=== PATIENT | male | born 1930 ===

== ENCOUNTER 2017-12-30 12:41 | Inpatient (IN) | payer MEDICARE ==
[2017-12-30 12:41] VITALS: BMI 25.8
[2017-12-30] MEDS ORDERED: Tdap Vaccine 0.5 ml Vial (10-64 yrs) IM ONE (14:05)
[2017-12-30 14:22] LABS: BASO # 0.1 K/uL (0.0-0.2); BASO % 0.5 % (0.0-2.0); EOS # 0.3 K/uL (0.0-0.7); EOS % 3.4 % (0.0-4.0); HEMOGLOBIN 14.1 g/dL (12.0-18.0); LYMPH # 1.3 K/uL (1.0-4.3); LYMPH % 13.2 % (20.0-40.0); MEAN CELL VOLUME 86.8 fl (80.0-94.0); MEAN CORPUSCULAR HEMOGLOBIN 28.9 pg (27.0-31.0); MEAN CORPUSCULAR HGB CONC 33.3 g/dL (33.0-37.0); MEAN PLATELET VOLUME 8.1 fl (7.2-11.7); MONO # 0.8 K/uL (0.0-0.8); MONO % 8.4 % (0.0-10.0); NEUT # 7.3 K/uL (1.8-7.0); NEUT % 74.5 % (50.0-75.0); NRBC % 0.2 % (0.0-0.0); RBC 4.88 Mil/uL (4.40-5.90); RED CELL DISTRIBUTION WIDTH 14.1 % (11.5-14.5); WHITE BLOOD COUNT 9.8 K/uL (4.8-10.8)
[2017-12-30 14:28] LABS: INR 0.9 (0.9-1.2); PROTHROMBIN TIME 10.3 Seconds (9.8-13.1)
[2017-12-30 14:30] LABS: BLOOD UREA NITROGEN 13 mg/dl (9-20); CALCIUM 9.2 mg/dL (8.4-10.2); GFR AFRICAN-AMERICAN > 60; GFR NON-AFRICAN AMERICAN > 60
--- NOTE | 2017-12-30 15:06 | CT ---
PROCEDURE: CT HEAD WITHOUT CONTRAST. HISTORY: head injury COMPARISON: None available. TECHNIQUE: Axial computed tomography images were obtained through the head/brain without intravenous contrast. Radiation dose: Total exam DLP = 888 mGy-cm. This CT exam was performed using one or more of the following dose reduction techniques: Automated exposure control, adjustment of the mA and/or kV according to patient size, and/or use of iterative reconstruction technique. FINDINGS: HEMORRHAGE: No intracranial hemorrhage. No extra-axial acute subdural hematoma on subdural windows. Posterior fossa is otherwise unremarkable. BRAIN: No mass effect or edema. Moderate small-vessel changes in the white matter tracts. No cortical effacement. Mild diffuse cerebral cortical atrophy consistent with the patient's age. Cervicomedullary junction is unremarkable as visualized. No tonsillar ectopia is seen. Pituitary gland is normal in size. VENTRICLES: Unremarkable. No hydrocephalus. CALVARIUM: Intact. PARANASAL SINUSES: Chronic moderate left maxillary sinusitis is noted. Mastoid air cells are unremarkable. MASTOID AIR CELLS: Unremarkable as visualized. No inflammatory changes. OTHER FINDINGS: None. IMPRESSION: No evidence of intracranial hemorrhage or recent infarct. Atrophy and moderate small vessel change.
--- NOTE | 2017-12-30 15:10 | CT ---
PROCEDURE: CT Cervical Spine without contrast HISTORY: Trauma, fall COMPARISON: None available. TECHNIQUE: Axial computed tomography images were obtained of the cervical spine without the use of intravenous contrast. Coronal and sagittal reformatted images were created and reviewed. Radiation dose: Total exam DLP = 454 mGy-cm. This CT exam was performed using one or more of the following dose reduction techniques: Automated exposure control, adjustment of the mA and/or kV according to patient size, and/or use of iterative reconstruction technique. FINDINGS: VERTEBRAE: No fracture. Normal alignment. No destructive bony lesion. DISCS/SPINAL CANAL/NEURAL FORAMINA: Multilevel degenerative disc disease with mild disc bulging. Small possible central protrusion at C6-7 and small posterior disc osteophyte complex at C7-T1. Areas of bony neural foraminal narrowing. No jumped facets appreciated. C1-C2 articulation shows no evidence of abnormal widening. PARASPINAL SOFT TISSUES: No prevertebral soft tissue swelling. No paraspinal masses. No jumped facets are identified. OTHER FINDINGS: None. IMPRESSION: No appreciable fracture or malalignment. Degenerative disc disease and spondylosis. Small central disc herniation at C6-7 and small posterior disc osteophyte complex at C7-T1. Mild bulging at C5-6.
--- NOTE | 2017-12-30 15:34 | ED PDOC ---
HPI: Trauma/Fall - HPI Time Seen by Provider: 12/30/17 13:32 Chief Complaint (Nursing): Trauma Chief Complaint (Provider): Fall Type injuries History Per: Patient History/Exam Limitations: no limitations Onset/Duration Of Symptoms: Hrs Location Of Injury: Left: Knee Associated Symptoms: denies: Dizziness, LOC Additional Complaint(s): 87 year old male with a past medical history of hypertension presents to the emergency department post fall. The patient states that he remembers falling but is unsure as to how or why he fell. He reports that he fell hitting his head and face on the floor. Patient further states that he also fell yesterday. Denies chest pain, palpitations, shortness of breath, abdominal pain . - Fall Fall:Prior To Injury: Tripped Past Medical History Reviewed: Historical Data, Nursing Documentation, Vital Signs Vital Signs: Last Vital Signs Temp 98.0 F 01/01/18 12:00 Pulse 96 H 01/01/18 13:21 Resp 18 01/01/18 12:00 BP 114/76 01/01/18 12:00 Pulse Ox 96 01/01/18 12:00 - Medical History PMH: Arthritis, Diabetes (Type II), HTN, Hypercholesterolemia Denies: Chronic Kidney Disease - Surgical History Surgical History: Endoscopy Other surgeries: prostate surgery - Family History Family History: States: Unknown Family Hx - Social History Current smoker - smoking cessation education provided: No Ex-Smoker (has not smoked in the last 12 months): No Alcohol: None Drugs: Denies - Home Medications Home Medications: Ambulatory Orders Medication Instructions Recorded Gabapentin [Neurontin] 300 mg PO BID 12/30/17 Glipizide [Glucotrol] 10 mg PO BID 12/30/17 Montelukast [Singulair] 10 mg PO DAILY 12/30/17 Sitagliptin Phos/Metformin HCl 1 each PO DAILY 12/30/17 [Janumet Xr 100-1,000 mg Tablet] Aspirin [Ecotrin] 81 mg PO DAILY #30 tabec 01/01/18 Atorvastatin [Lipitor] 20 mg PO DAILY #30 tab 01/01/18 Clopidogrel [Plavix] 75 mg PO DAILY #30 tab 01/01/18 Enalapril Maleate [Vasotec] 20 mg PO BID #60 tab 01/01/18 hydroCHLOROthiazide [Hydrodiuril] 12.5 mg PO DAILY #30 tab 01/01/18 - Allergies Allergies/Adverse Reactions: Allergies Allergy/AdvReac Type Severity Reaction Status Date / Time No Known Allergies Allergy Verified 12/30/17 20:36 Review of Systems ROS Statement: Except As Marked, All Systems Reviewed And Found Negative Constitutional: Positive for: Other (Head injury) Cardiovascular: Negative for: Chest Pain, Orthopnea Respiratory: Negative for: Shortness of Breath Musculoskeletal: Positive for: Other (left knee pain) Neurological: Negative for: Headache, Dizziness Physical Exam - Physical Exam Head Exam: Negative for: ATRAUMATIC (Superficial laceration on lower lip mucosal aspect;lower lip laceration on mucosal aspect; mild abrasion of nose.) Skin: Positive for: Normal Color, Warm, Dry. Negative for: Rash Eye Exam: Positive for: Normal appearance, EOMI, PERRL ENT: Positive for: Normal ENT Inspection. Negative for: Nasal Congestion, Tonsillar Exudate Neck: Positive for: Normal, Painless ROM, Supple Cardiovascular/Chest: Positive for: Regular Rate, Rhythm, Chest Non Tender. Negative for: Tachycardia Respiratory: Positive for: Normal Breath Sounds. Negative for: Wheezing, Respiratory Distress Gastrointestinal/Abdominal: Positive for: Normal Exam, Bowel Sounds, Soft. Negative for: Tenderness, Mass, Guarding, Rebound Back: Positive for: Normal Inspection. Negative for: L CVA Tenderness, R CVA Tenderness Extremity: Positive for: Normal ROM (Full ROM of left knee). Negative for: Tenderness (no tenderness ot left knee), Deformity, Swelling (no swelling to left knee) Neurologic/Psych: Positive for: Alert (AAO x3), Oriented - Laboratory Results Result Diagrams: 01/01/18 04:20 01/01/18 04:20 - ECG ECG: Positive for: Interpreted By Me, Viewed By Me ECG Rhythm: Positive for: Normal QRS, Normal ST Segment, Sinus Rhythm, Nonspecific Changes Rate: 87 O2 Sat by Pulse Oximetry: 97 (RA) Pulse Ox Interpretation: Normal Medical Decision Making Medical Decision Makin Initial Impression 87 year old male presenting with fall possible syncope , head injury, facial injury and knee injury Differentials: Intracranial bleeding , Cardiac Arrhythmia Initial Plan: * CT Cervical Spine w/o Contrast * CT Head w/o Contrast * EKG * Alcohol Serum * BMP * Drug Screen * Udip * CBC * PTT * Prothrombin Time * Tetanus 0.5mL * Admit 1522 * Reevaluation 1505 PROCEDURE: CT HEAD WITHOUT CONTRAST. HISTORY: head injury COMPARISON: None available. TECHNIQUE: Axial computed tomography images were obtained through the head/brain without intravenous contrast. Radiation dose: Total exam DLP = 888 mGy-cm. This CT exam was performed using one or more of the following dose reduction techniques: Automated exposure control, adjustment of the mA and/or kV according to patient size, and/or use of iterative reconstruction technique. FINDINGS: HEMORRHAGE: No intracranial hemorrhage. No extra-axial acute subdural hematoma on subdural windows. Posterior fossa is otherwise unremarkable. BRAIN: No mass effect or edema. Moderate small-vessel changes in the white matter tracts. No cortical effacement. Mild diffuse cerebral cortical atrophy consistent with the patient's age. Cervicomedullary junction is unremarkable as visualized. No tonsillar ectopia is seen. Pituitary gland is normal in size. VENTRICLES: Unremarkable. No hydrocephalus. CALVARIUM: Intact. PARANASAL SINUSES: Chronic moderate left maxillary sinusitis is noted. Mastoid air cells are unremarkable. MASTOID AIR CELLS: Unremarkable as visualized. No inflammatory changes. OTHER FINDINGS: None. IMPRESSION: No evidence of intracranial hemorrhage or recent infarct. Atrophy and moderate small vessel change. 1508 PROCEDURE: CT Cervical Spine without contrast HISTORY: Trauma, fall COMPARISON: None available. TECHNIQUE: Axial computed tomography images were obtained of the cervical spine without the use of intravenous contrast. Coronal and sagittal reformatted images were created and reviewed. Radiation dose: Total exam DLP = 454 mGy-cm. This CT exam was performed using one or more of the following dose reduction techniques: Automated exposure control, adjustment of the mA and/or kV according to patient size, and/or use of iterative reconstruction technique. FINDINGS: VERTEBRAE: No fracture. Normal alignment. No destructive bony lesion. DISCS/SPINAL CANAL/NEURAL FORAMINA: Multilevel degenerative disc disease with mild disc bulging. Small possible central protrusion at C6-7 and small posterior disc osteophyte complex at C7- T1. Areas of bony neural foraminal narrowing. No jumped facets appreciated. C1- C2 articulation shows no evidence of abnormal widening. PARASPINAL SOFT TISSUES: No prevertebral soft tissue swelling. No paraspinal masses. No jumped facets are identified. OTHER FINDINGS: None. IMPRESSION: No appreciable fracture or malalignment. Degenerative disc disease and spondylosis. Small central disc herniation at C6-7 and small posterior disc osteophyte complex at C7-T1. Mild bulging at C5-6. Documented by Anusha Gregorio acting as a scribe for Vandana Li MD. All medical record entries made by the Scribe were at my direction and personally dictated by me. I have reviewed the chart and agree that the record accurately reflects my personal performance of the history, physical exam, medical decision making, and the department course for this patient. I have also personally directed, reviewed, and agree with the discharge instructions and disposition. Disposition - Clinical Impression Clinical Impression: Fall, Head injury, Syncope - Patient ED Disposition Is Patient to be Admitted: Yes Discussed With : Cristian Bravo Doctor Will See Patient In The: Hospital Counseled Patient/Family Regarding: Studies Performed, Diagnosis - Disposition Disposition Time: 15:22 Condition: FAIR - Pt Status Changed To: Hospital Disposition Of: Observation - POA Present On Arrival: Falls Or Trauma
[2017-12-30 17:05] LABS: BARBITURATES, UR NEGATIVE (NEGATIVE); BENZODIAZEPINES, UR NEGATIVE (NEGATIVE); OPIATES, UR NEGATIVE (NEGATIVE); PHENCYCLIDINE, UR NEGATIVE (NEGATIVE)
[2017-12-31] MEDS ORDERED: Labetalol 5 mg/ml Inj 20ML IVP STA (02:36)
--- NOTE | 2017-12-31 03:39 | PCM.RRT ---
PRODUCT PLANNER Nurse Assessment - Situation PRODUCT PLANNER Reason for Call: Hypertension PRODUCT PLANNER Called By: RN - IV IV Inserted during PRODUCT PLANNER?: No - Respiratory Oxygen Delivery Method: Room Air I.Reason for PRODUCT PLANNER - A) Acute Change in Patient: Subjective: PRODUCT PLANNER Call Time: PRODUCT PLANNER Arrival Time: : PRODUCT PLANNER Location: Telemetry 405-1 S: PRODUCT PLANNER was called by RN on 87 y/o male due to very elevated BP. Pt reports feeling well, denies headache, dizziness, chills, chest pain, SOB, N/V, peripheral edema, paresthesias or visual disturbances. Nurse reports BP was elevated at ER, arund 160s systolic. Vasotec was administered at 00:07. O: --Vital signs: BP 220/95, HR 66, sat O2 100%. --Physical Exam: > GEN: Pt awake, alert and oriented in person and place; NAD, resting comfortably on bed, responsive to stimulation and verbal in Serbian. > HEENT: atraumatic, non-tender, PERRL, EOMI, moist mucous membranes. > CV: S1 and S2 present. > Lungs: CTAB, No wheezing, rales or ronchi > EXT: Strength 5/5 b/l in upper and lower extremities, SILT b/l, normal ROM. PRODUCT PLANNER Interventions: --Pt placed on suspine position. --Labetalol 20mg IVP ordered immediately and administered at 02:42. --At 02:49, BP 204/87 and HR56. --Hydralazine 10mg IVP ordered and administered at 02:50 --Repeated VS at 02:55, BP 183/69, HR 59, Sat O2 100%, RR 16. A/P 87 y/o M with a PMHx of HTN, admitted for evaluation s/p fall, presented with elevated BP 220/95 asymptomatic. --Monitor BP for the next 30 minutes --Will re-evaluate if NO BP improvement. PRODUCT PLANNER End: 02:56 PRODUCT PLANNER Leader: Dr Delgado Sarabia. PRODUCT PLANNER Residents: Dr Barlow PGY-2; Dr Avelar PGY-1.
[2017-12-31] MEDS: Insulin Regular 100 units/ml SC SCH ×4 (06:46→22:00)
--- NOTE | 2017-12-31 08:51 | CARD ---
APPROVED REPORT EKG Measurement Heart [id number] <Conclusion> Normal sinus rhythm Junctional ST depression, probably normal Borderline ECG
[2017-12-31] MEDS ORDERED: METFORMIN HCL PO SCH (09:00)
[2017-12-31] MEDS ORDERED: [UNRECOGNIZED DRUG - OTHER] PO SCH (09:00)
[2017-12-31] MEDS ORDERED: Enoxaparin 30 mg Syringe SC SCH (09:00)
[2017-12-31] MEDS ORDERED: SITAGLIPTIN PHOS PO SCH (09:00)
--- NOTE | 2017-12-31 11:17 | CP.PCM.CON ---
History of Present Illness - History of Present Illness History of Present Illness: 87 y/o male admitted after a fall It is not known whether he tripped or passed out PMH: HTN Arthritis, Diabetes (Type II) Hypercholesterolemia EKG: Normal Echo: Past Patient History - Past Medical History & Family History Past Medical History?: Yes - Past Social History Smoking Status: Never Smoked - CARDIAC Hx Hypercholesterolemia: Yes Hx Hypertension: Yes - PULMONARY Hx Respiratory Disorders: No - NEUROLOGICAL Hx Neurological Disorder: No - HEENT Hx HEENT Problems: Yes - RENAL Hx Chronic Kidney Disease: No - ENDOCRINE/METABOLIC Hx Endocrine Disorders: Yes (DM II) Hx Diabetes Mellitus Type 2: Yes - HEMATOLOGICAL/ONCOLOGICAL Hx Blood Disorders: No - INTEGUMENTARY Hx Dermatological Problems: No - MUSCULOSKELETAL/RHEUMATOLOGICAL Hx Falls: Yes - GASTROINTESTINAL Hx Gastrointestinal Disorders: No - GENITOURINARY/GYNECOLOGICAL Hx Genitourinary Disorders: Yes Hx Prostate Problems: Yes (HAD SURGERY 25 YEARS AGO) - PSYCHIATRIC Hx Substance Use: No - SURGICAL HISTORY Hx Surgeries: Yes Hx Cataract Extraction: Yes ( LEFT EYE) Hx Eye Surgery: Yes (LOSS OF VISION LEFT EYE) Other/Comment: PROSTATE SURGERY - ANESTHESIA Hx Anesthesia: Yes Hx Anesthesia Reactions: No Hx Malignant Hyperthermia: No Meds Allergies/Adverse Reactions: Allergies Allergy/AdvReac Type Severity Reaction Status Date / Time No Known Allergies Allergy Verified 12/30/17 20:36 - Medications Medications: Current Medications Enalapril Maleate (Vasotec) 20 mg PO BID [facility] Last Admin: 12/31/17 08:43 Dose: 20 mg Enoxaparin Sodium (Lovenox) 40 mg SC DAILY [facility] PRN Reason: Protocol Gabapentin (Neurontin) 300 mg PO BID [facility] Last Admin: 12/31/17 08:42 Dose: 300 mg Glipizide (Glucotrol) 10 mg PO BID [facility] Last Admin: 12/31/17 08:43 Dose: 10 mg Insulin Human Regular (Humulin R) 0 units SC [facility] PRN Reason: Protocol Last Admin: 12/31/17 06:46 Dose: Not Given Metformin HCl (Glucophage) 500 mg PO BID [facility] Last Admin: 12/31/17 08:42 Dose: 500 mg Montelukast Sodium (Singulair) 10 mg PO DAILY [facility] Last Admin: 12/31/17 08:42 Dose: 10 mg Sitagliptin Phosphate (Januvia) 100 mg PO DAILY [facility] Physical Exam - Respiratory Exam Respiratory Exam: NORMAL BREATHING PATTERN - Cardiovascular Exam Cardiovascular Exam: REGULAR RHYTHM, Systolic Murmur Results - Vital Signs Recent Vital Signs: Last Vital Signs Temp 97.8 F 12/31/17 08:00 Pulse 73 12/31/17 08:00 Resp 20 12/31/17 08:00 BP 169/80 H 12/31/17 08:00 Pulse Ox 97 12/31/17 08:00 - Labs Result Diagrams: 12/30/17 14:12 12/30/17 14:12 Labs: Laboratory Results - last 24 hr 12/30/17 12/30/17 12/30/17 14:12 14:12 14:12 WBC 9.8 D RBC 4.88 Hgb 14.1 Hct 42.4 MCV 86.8 MCH 28.9 MCHC 33.3 RDW 14.1 Plt Count 309 MPV 8.1 Neut % (Auto) 74.5 Lymph % (Auto) 13.2 L [place] % (Auto) 8.4 Eos % (Auto) 3.4 Baso % (Auto) 0.5 Neut # (Auto) 7.3 H Lymph # (Auto) 1.3 [place] # (Auto) 0.8 Eos # (Auto) 0.3 Baso # (Auto) 0.1 PT 10.3 INR 0.9 APTT 30.0 Sodium 143 Potassium 3.4 L Chloride 101 Carbon Dioxide 25 Anion Gap 20 BUN 13 Creatinine 0.8 Est GFR ( Amer) > 60 Est GFR (Non-Af Amer) > 60 POC Glucose (mg/dL) Random Glucose 69 L Calcium 9.2 Troponin I Urine Opiates Screen Urine Methadone Screen Ur Barbiturates Screen Ur Phencyclidine Scrn Ur Amphetamines Screen U Benzodiazepines Scrn U Oth Cocaine Metabols U Cannabinoids Screen Alcohol, Quantitative < 10 12/30/17 12/31/17 12/31/17 15:15 01:34 05:49 WBC RBC Hgb Hct MCV MCH MCHC RDW Plt Count MPV Neut % (Auto) Lymph % (Auto) [place] % (Auto) Eos % (Auto) Baso % (Auto) Neut # (Auto) Lymph # (Auto) [place] # (Auto) Eos # (Auto) Baso # (Auto) PT INR APTT Sodium Potassium Chloride Carbon Dioxide Anion Gap BUN Creatinine Est GFR ( Amer) Est GFR (Non-Af Amer) POC Glucose (mg/dL) 149 H Random Glucose Calcium Troponin I 0.0850 Urine Opiates Screen Negative Urine Methadone Screen Negative Ur Barbiturates Screen Negative Ur Phencyclidine Scrn Negative Ur Amphetamines Screen Negative U Benzodiazepines Scrn Negative U Oth Cocaine Metabols Negative U Cannabinoids Screen Negative Alcohol, Quantitative Assessment & Plan (1) Fall Assessment and Plan: It is uncertain whether the pt tripped and fell or passed out EKG: normal troponin: neg Echo: pt may have had syncopal episode 2* to Status: Acute (2) DM2 (diabetes mellitus, type 2) Status: Acute (3) HTN (hypertension) Status: Acute
--- NOTE | 2017-12-31 13:15 | CP.PCM.CON ---
History of Present Illness - History of Present Illness History of Present Illness: 87 yr old male with pmh of hypertension, who is here for a fall that was sustained yesterday, with some facial injuries. Some of the history was obtained with energy audit advisor and patient was able to tell me the following: he was walking and when he turned he fell, but does not understand exactly why he fell down. He has frequent falls but does not report slowness of movement or tremor. There is no family history of parkinsons disease, and he has no history of stroke or intracerebral process. He denies dizziness, headache, aphasia, weakness or chest pain. PMH/PSH: Hypertension, DM 2, hypercholesterolemia, aortic stenosis. FH/SH: non contributory All :nkda on exam: aaox3. pupils 3mm-2mm with light. Cn 2-12 normal. facial scars and scratches. Speech fluent. Can name and repeat with no deficits. motor: tone normal, no cowheel rigidity, strength: 5/5 ul and ll bl. sensory: no vibration sense in feet bilaterally. decreased position sense in feet bilaterally. stocking type decrease in ft, pin in legs bilaterally. Gait: has great difficulty walking without instability, but no signs of parkinsons. Gait is normal, however, with no small steps of parkinsons. Past Patient History - Past Medical History & Family History Past Medical History?: Yes - Past Social History Smoking Status: Never Smoked - CARDIAC Hx Hypercholesterolemia: Yes Hx Hypertension: Yes - PULMONARY Hx Respiratory Disorders: No - NEUROLOGICAL Hx Neurological Disorder: No - HEENT Hx HEENT Problems: Yes - RENAL Hx Chronic Kidney Disease: No - ENDOCRINE/METABOLIC Hx Endocrine Disorders: Yes (DM II) Hx Diabetes Mellitus Type 2: Yes - HEMATOLOGICAL/ONCOLOGICAL Hx Blood Disorders: No - INTEGUMENTARY Hx Dermatological Problems: No - MUSCULOSKELETAL/RHEUMATOLOGICAL Hx Falls: Yes - GASTROINTESTINAL Hx Gastrointestinal Disorders: No - GENITOURINARY/GYNECOLOGICAL Hx Genitourinary Disorders: Yes Hx Prostate Problems: Yes (HAD SURGERY 25 YEARS AGO) - PSYCHIATRIC Hx Substance Use: No - SURGICAL HISTORY Hx Surgeries: Yes Hx Cataract Extraction: Yes ( LEFT EYE) Hx Eye Surgery: Yes (LOSS OF VISION LEFT EYE) Other/Comment: PROSTATE SURGERY - ANESTHESIA Hx Anesthesia: Yes Hx Anesthesia Reactions: No Hx Malignant Hyperthermia: No Meds Allergies/Adverse Reactions: Allergies Allergy/AdvReac Type Severity Reaction Status Date / Time No Known Allergies Allergy Verified 12/30/17 20:36 - Medications Medications: Current Medications Enalapril Maleate (Vasotec) 20 mg PO BID [facility] Last Admin: 12/31/17 08:43 Dose: 20 mg Enoxaparin Sodium (Lovenox) 40 mg SC DAILY [facility] PRN Reason: Protocol Gabapentin (Neurontin) 300 mg PO BID [facility] Last Admin: 12/31/17 08:42 Dose: 300 mg Glipizide (Glucotrol) 10 mg PO BID [facility] Last Admin: 12/31/17 08:43 Dose: 10 mg Insulin Human Regular (Humulin R) 0 units SC [facility] PRN Reason: Protocol Last Admin: 12/31/17 12:13 Dose: 1 unit Metformin HCl (Glucophage) 500 mg PO BID [facility] Last Admin: 12/31/17 08:42 Dose: 500 mg Montelukast Sodium (Singulair) 10 mg PO DAILY [facility] Last Admin: 12/31/17 08:42 Dose: 10 mg Sitagliptin Phosphate (Januvia) 100 mg PO DAILY [facility] Last Admin: 12/31/17 12:12 Dose: 100 mg Results - Vital Signs Recent Vital Signs: Last Vital Signs Temp 97.8 F 12/31/17 08:00 Pulse 73 12/31/17 08:00 Resp 20 12/31/17 08:00 BP 169/80 H 12/31/17 08:00 Pulse Ox 97 12/31/17 08:00 - Labs Result Diagrams: 12/30/17 14:12 12/30/17 14:12 Labs: Laboratory Results - last 24 hr 12/30/17 12/30/17 12/30/17 14:12 14:12 14:12 WBC 9.8 D RBC 4.88 Hgb 14.1 Hct 42.4 MCV 86.8 MCH 28.9 MCHC 33.3 RDW 14.1 Plt Count 309 MPV 8.1 Neut % (Auto) 74.5 Lymph % (Auto) 13.2 L [place] % (Auto) 8.4 Eos % (Auto) 3.4 Baso % (Auto) 0.5 Neut # (Auto) 7.3 H Lymph # (Auto) 1.3 [place] # (Auto) 0.8 Eos # (Auto) 0.3 Baso # (Auto) 0.1 PT 10.3 INR 0.9 APTT 30.0 Sodium 143 Potassium 3.4 L Chloride 101 Carbon Dioxide 25 Anion Gap 20 BUN 13 Creatinine 0.8 Est GFR ( Amer) > 60 Est GFR (Non-Af Amer) > 60 POC Glucose (mg/dL) Random Glucose 69 L Calcium 9.2 Troponin I Urine Opiates Screen Urine Methadone Screen Ur Barbiturates Screen Ur Phencyclidine Scrn Ur Amphetamines Screen U Benzodiazepines Scrn U Oth Cocaine Metabols U Cannabinoids Screen Alcohol, Quantitative < 10 12/30/17 12/31/17 12/31/17 15:15 01:34 05:49 WBC RBC Hgb Hct MCV MCH MCHC RDW Plt Count MPV Neut % (Auto) Lymph % (Auto) [place] % (Auto) Eos % (Auto) Baso % (Auto) Neut # (Auto) Lymph # (Auto) [place] # (Auto) Eos # (Auto) Baso # (Auto) PT INR APTT Sodium Potassium Chloride Carbon Dioxide Anion Gap BUN Creatinine Est GFR ( Amer) Est GFR (Non-Af Amer) POC Glucose (mg/dL) 149 H Random Glucose Calcium Troponin I 0.0850 Urine Opiates Screen Negative Urine Methadone Screen Negative Ur Barbiturates Screen Negative Ur Phencyclidine Scrn Negative Ur Amphetamines Screen Negative U Benzodiazepines Scrn Negative U Oth Cocaine Metabols Negative U Cannabinoids Screen Negative Alcohol, Quantitative 12/31/17 12/31/17 11:29 11:45 WBC RBC Hgb Hct MCV MCH MCHC RDW Plt Count MPV Neut % (Auto) Lymph % (Auto) [place] % (Auto) Eos % (Auto) Baso % (Auto) Neut # (Auto) Lymph # (Auto) [place] # (Auto) Eos # (Auto) Baso # (Auto) PT INR APTT Sodium Potassium Chloride Carbon Dioxide Anion Gap BUN Creatinine Est GFR ( Amer) Est GFR (Non-Af Amer) POC Glucose (mg/dL) 176 H Random Glucose Calcium Troponin I 0.0320 Urine Opiates Screen Urine Methadone Screen Ur Barbiturates Screen Ur Phencyclidine Scrn Ur Amphetamines Screen U Benzodiazepines Scrn U Oth Cocaine Metabols U Cannabinoids Screen Alcohol, Quantitative - Imaging and Cardiology CT scan - head Status: Image reviewed by me, Report reviewed by me (ct head normal. 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 We may also evaluate his carotid function. Plan: 1. Physical therapy. 2. Gait training. 3. Carotid Dopplers Thank you for this interesting consult. Dr. Pedro Md, DPN
--- NOTE | 2017-12-31 14:32 | HP ---
CHIEF COMPLAINT: Multiple falls and questionable passing out. HISTORY OF PRESENT ILLNESS: This is an 87-year-old male who had multiple episodes of falling out and do not remember how it happened, one episode happened a day before admission and then the second episode happened on the day of admission. When the patient fell, he hit his head and face and does not remember how it happened and does not remember if he passed out or not, also does not think that he tripped on anything. REVIEW OF SYSTEMS: Positive for multiple falls, head trauma, and facial trauma. Review of systems otherwise is negative for headache, dizziness, syncope, loss of consciousness, chest pain, shortness of breath, nausea, vomiting, diarrhea, constipation or any new joint or extremity pain. Review of systems of all other organ systems is unremarkable. PAST MEDICAL HISTORY: Significant for diabetes, hypertension, and elevated cholesterol. PAST SURGICAL HISTORY: Unremarkable. PERSONAL HISTORY: The patient is currently nonsmoker and nondrinker. No substance abuse. MEDICATIONS: The patient is on multiple medications, which is as per reconciliation sheet, which was reviewed and ordered. ALLERGIES: THE PATIENT IS NOT ALLERGIC TO ANY MEDICATIONS. FAMILY HISTORY: Noncontributory. PHYSICAL EXAMINATION: GENERAL: A well-built, well-nourished 87-year-old male, in no acute distress. VITAL SIGNS: Temperature 97.8, pulse 73, respirations 20, and blood pressure 169/80. HEENT: Pupils reacting to light. No JVD. No thyromegaly. No lymphadenopathy. No nystagmus. Normocephalic and atraumatic skull. The patient has superficial facial trauma. No sign of deeper injury. HEART: S1 and S2. Normal and regular. No significant murmur, gallop or rub is heard. LUNGS: Shows good bilateral air exchange. No rales or rhonchi. ABDOMEN: Soft and nontender. No organomegaly. No fluids. Bowel sounds are plus and normal. EXTREMITIES: No edema. No calf swelling. No tenderness. No acute ischemia. HAND II TUBE BENDER: Essentially unchanged and there is no sign of any acute gross focal motor or sensory neurological deficits. DIAGNOSTIC DATA: Available diagnostic data reviewed. WBC 9.8, hemoglobin 14.1, hematocrit 42.4, and platelets 309,000. Sodium , potassium 3.4, chloride 101, bicarbonate 25, BUN 13, and creatinine 0.8. SMA-12 is unremarkable. Accu-Cheks are 149, 176, and 169. Toxicology is negative. EKG does not reveal any acute ST-T changes. Cervical and head CAT scan is unremarkable. ADMITTING IMPRESSION: Syncope, multiple falls, type 2 diabetes with hyperglycemia, hypertension, and elevated cholesterol. PLAN: As ordered. Case and plan discussed with the patient. Note, the patient also had elevated blood pressure overnight and was called. Cristian Bravo MD
[2017-12-31] MEDS ORDERED: Pneumococcal 23-Valent Vaccine IM ONE (15:29)
[2017-12-31] MEDS: Enoxaparin 40 mg Syringe SC SCH (16:29)
--- NOTE | 2017-12-31 16:55 | CARD ---
APPROVED REPORT EXAM: Two-dimensional and M-mode echocardiogram with Doppler and color Doppler. Other Information Quality : GoodRhythm : NSR INDICATION Syncope 2D DIMENSIONS IVSd1.16 (0.7-1.1cm)LVDd4.11 (3.9-5.9cm) LVOT Diameter2.19 (1.8-2.4cm)PWd0.93 (0.7-1.1cm) IVSs1.36 (0.8-1.2cm)LVDs2.48 (2.5-4.0cm) FS (%) 39.6 %PWs1.47 (0.8-1.2cm) M-Mode DIMENSIONS Left Atrium (MM)4.29 (2.5-4.0cm)IVSd1.21 (0.7-1.1cm) Aortic Root3.03 (2.2-3.7cm)LVDd5.24 (4.0-5.6cm) Aortic Cusp Exc.1.09 (1.5-2.0cm)PWd1.38 (0.7-1.1cm) IVSs2.00 cmFS (%) 46 % LVDs2.82 (2.0-3.8cm)PWs2.03 cm Aortic Valve AoV Peak Pwojpgad037.3cm/Tylor Peak GR.46mmHgLVOT Peak Rpxtieuj76.5cm/s LVOT VTI16.35cmAVA (VMAX)0.59cm2 Mitral Valve MV E Jkggxqew30.2cm/sMV DECEL NDEY893qwSC A Stjxoozv883.2cm/s MV MST81ypT/A ratio0.5MVA (PHT)2.77cm2 TDI Lateral E' Peak V5.54cm/sMedial E' Peak V3.99cm/sE/Lateral E'10.0 E/Medial E'13.8 Pulmonary Valve PV Peak Fecefaul332.5cm/s LEFT VENTRICLE The left ventricle is normal in size. There is mild concentric left ventricular hypertrophy. The left ventricular function is normal. The left ventricular ejection fraction is - 65-70%. There is normal LV segmental wall motion. Transmitral Doppler flow pattern is Grade I-abnormal relaxation pattern. No left ventricle thrombus noted on this study. There is no ventricular septal defect visualized. There is no left ventricular aneurysm. There is no mass noted in the left ventricle. RIGHT VENTRICLE The right ventricle is normal size. There is normal right ventricular wall thickness. The right ventricular systolic function is normal. ATRIA The left atrium is mildly dilated. There is no thrombus suspected in the left atrium. The right atrium size is normal. The interatrial septum is intact with no evidence for an atrial septal defect. AORTIC VALVE The aortic valve is moderately to severely calcified(best seen on the apical 4 chamber view). No aortic regurgitation is present. There is severe valvular aortic stenosis. Calculated aortic valve area is 0.95 cm2 with maximum pressure gradient of 45.5 mmHg. MITRAL VALVE The mitral valve is normal in structure. There is no evidence of mitral valve prolapse. There is no mitral valve stenosis. Mitral regurgitation is mild. TRICUSPID VALVE The tricuspid valve is normal in structure. There is no tricuspid valve regurgitation noted. There is no tricuspid valve prolapse or vegetation. There is no tricuspid valve stenosis. PULMONIC VALVE The pulmonary valve is normal in structure. There is no pulmonic valvular regurgitation. GREAT VESSELS The aortic root is normal in size. The IVC is normal in size and collapses >50% with inspiration. PERICARDIAL EFFUSION The pericardium appears normal. There is no pleural effusion. <Conclusion> The left ventricle is normal in size. There is mild concentric left ventricular hypertrophy. The left ventricular function is normal. The left ventricular ejection fraction is - 65-70%. The left atrium is mildly dilated. There is severe valvular aortic stenosis. Calculated aortic valve area is 0.95 cm2 with maximum pressure gradient of 45.5 mmHg. The mitral and tricuspid valves are normal. There is mild mitral regurgitation.
--- NOTE | 2017-12-31 16:58 | RAD ---
HISTORY: cough COMPARISON: Comparison chest 12/17/2016 TECHNIQUE: Chest PA and lateral FINDINGS: LUNGS: No acute consolidation. Persistent elevation right hemidiaphragm likely due to eventration. PLEURA: No significant pleural effusion identified. No pneumothorax apparent. CARDIOVASCULAR: Heart is enlarged. OSSEOUS STRUCTURES: Thin multilevel anterior bridging osteophyte formation. Rule out ankylosing spondylitis VISUALIZED UPPER ABDOMEN: Normal. OTHER FINDINGS: None. IMPRESSION: No acute infiltrates. 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 Cardiomegaly
[2017-12-31 17:35] LABS: URINE BILIRUBIN NEGATIVE (NEGATIVE); URINE BLOOD NEGATIVE (NEGATIVE); URINE CLARITY CLEAR (Clear); URINE COLOR YELLOW (YELLOW); URINE GLUCOSE (UA) 150 mg/dL (Normal); URINE LEUKOCYTE ESTERASE NEG Leu/uL (Negative); URINE PROTEIN 100 mg/dL (NEGATIVE); URINE UROBILINOGEN 0.2-1.0 mg/dL (0.2-1.0)
[2018-01-01 00:03] VITALS: RESP 18
[2018-01-01 05:54] LABS: HEMOGLOBIN 13.8 g/dL (12.0-18.0); MEAN CELL VOLUME 86.8 fl (80.0-94.0); MEAN CORPUSCULAR HEMOGLOBIN 28.5 pg (27.0-31.0); MEAN CORPUSCULAR HGB CONC 32.9 g/dL (33.0-37.0); RBC 4.84 Mil/uL (4.40-5.90); RED CELL DISTRIBUTION WIDTH 13.9 % (11.5-14.5)
[2018-01-01 05:57] LABS: BLOOD UREA NITROGEN 17 mg/dl (9-20); CALCIUM 9.1 mg/dL (8.4-10.2); GFR AFRICAN-AMERICAN > 60; GFR NON-AFRICAN AMERICAN > 60
[2018-01-01] MEDS: Insulin Regular 100 units/ml SC SCH ×2 (06:37→12:30)
[2018-01-01] MEDS: Enoxaparin 40 mg Syringe SC SCH (08:50)
--- NOTE | 2018-01-01 09:27 | HP ---
CHIEF COMPLAINT: Multiple falls and questionable loss of consciousness. HISTORY OF PRESENT ILLNESS: This is an 87-year-old male who lives at home and had multiple falls including one today which lead to head and facial trauma. The patient also had one episode yesterday. The patient does not remember how happened and does not think he tripped on anything. REVIEW OF SYSTEMS: At this time is negative for headache, dizziness, syncope, loss of consciousness, chest pain, shortness of breath, nausea, vomiting, diarrhea, constipation, any knee joint or extremity pain. Review of systems of all other organ systems is unremarkable. Dictation Ends Abruptly. Cristian Bravo MD
[2018-01-01] MEDS ORDERED: Iodixanol 320 MG/ML 100 ML BOTTLE IV ONE (09:40)
--- NOTE | 2018-01-01 11:03 | CT ---
PROCEDURE: CT Angiography of the Brain. HISTORY: syncope COMPARISON: None available. TECHNIQUE: CT angiography of the intracranial and neck arteries was performed. Coronal and sagittal maximum intensity projection reformated images were generated. Contrast Dose: Visipaque 320, 99 cc Radiation dose:Total exam DLP = 516.22 mGy-cm. This CT exam was performed using one or more of the following dose reduction techniques: Automated exposure control, adjustment of the mA and/or kV according to patient size, and/or use of iterative reconstruction technique. FINDINGS: INTERNAL CEREBRAL ARTERIES: Unremarkable. The skull base, petrous, cavernous and supraclinoid segments are bilaterally widely patent. Trace atherosclerosis is appreciated at the cavernous ICA segments bilaterally. 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 The left A1 and bilateral A2 segments are widely patent. Smaller distal branches unremarkable, as visualized. MIDDLE CEREBRAL ARTERIES: Unremarkable. M1 and M2 segments are widely patent. Perisylvian branches grossly symmetric. POSTERIOR CIRCULATION: Basilar Artery: Unremarkable. Distal Vertebral Arteries: Left dominant vertebrobasilar circulation noted. Bilateral distal vertebral arteries appear widely patent. Posterior Cerebral Arteries: Unremarkable. Posterior Inferior Cerebellar Arteries: Unremarkable. NECK CTA: Common Carotid arteries: The bilateral common carotid appear widely patent from their origins to their bifurcations with no significant stenosis appreciated. No evidence to suggest common carotid artery dissection. Trace bilateral carotid bulbar atherosclerosis, left greater than right. Internal Carotid arteries: No significant stenosis is appreciated throughout the cervical internal carotid artery segments bilaterally and there is no evidence of dissection either. External Carotid arteries: Appear unremarkable bilaterally. Vertebral arteries: The bilateral vertebral arteries appear normal in caliber from their origins to their junction with the basilar artery. No significant stenosis or definite pattern of dissection. ANEURYSM/ VASCULAR MALFORMATIONS: None. OTHER FINDINGS: None. IMPRESSION: Hypoplastic right A1 BRITTA segment identified with the remainder of the major intracranial arterial circulation otherwise remarkable only for trace bilateral cavernous ICA atherosclerosis bilaterally. No significant arterial stenosis or occlusion appreciated. No arteriovascular malformation or aneurysm identified. Neck CTA is remarkable only for a minimal carotid bulbar atherosclerosis bilaterally.
[2018-01-01 12:18] VITALS: BP 114/76; TEMP 98
--- NOTE | 2018-01-01 14:20 | CP.PCM.DIS ---
Provider - Provider Date of Admission: 12/31/17 19:37 Attending physician: Cristian Bravo MD Consults: Neurology Cardiology Time Spent in preparation of Discharge (in minutes): 30 Diagnosis - Discharge Diagnosis (1) Aortic stenosis Status: Chronic Comment: F/U as outpatient. Evaluated by Cardiology. Medical management (2) Fall Status: Acute Comment: Poss due to /Syncope. (3) DM2 (diabetes mellitus, type 2) Status: Chronic Comment: Stable Hospital Course - Lab Results Lab Results: Micro Results 12/31/17 17:12 Urine,Clean Catch Urine Culture - Final No Growth (<1,000 CFU/ML) Most Recent Lab Values WBC 9.0 K/uL (4.8-10.8) 01/01/18 04:20 RBC 4.84 Mil/uL (4.40-5.90) 01/01/18 04:20 Hgb 13.8 g/dL (12.0-18.0) 01/01/18 04:20 Hct 42.0 % (35.0-51.0) 01/01/18 04:20 MCV 86.8 fl (80.0-94.0) 01/01/18 04:20 MCH 28.5 pg (27.0-31.0) 01/01/18 04:20 MCHC 32.9 g/dL (33.0-37.0) L 01/01/18 04:20 RDW 13.9 % (11.5-14.5) 01/01/18 04:20 Plt Count 320 K/uL (130-400) 01/01/18 04:20 MPV 8.1 fl (7.2-11.7) 12/30/17 14:12 Neut % (Auto) 74.5 % (50.0-75.0) 12/30/17 14:12 Lymph % (Auto) 13.2 % (20.0-40.0) L 12/30/17 14:12 [place] % (Auto) 8.4 % (0.0-10.0) 12/30/17 14:12 Eos % (Auto) 3.4 % (0.0-4.0) 12/30/17 14:12 Baso % (Auto) 0.5 % (0.0-2.0) 12/30/17 14:12 Neut # (Auto) 7.3 K/uL (1.8-7.0) H 12/30/17 14:12 Lymph # (Auto) 1.3 K/uL (1.0-4.3) 12/30/17 14:12 [place] # (Auto) 0.8 K/uL (0.0-0.8) 12/30/17 14:12 Eos # (Auto) 0.3 K/uL (0.0-0.7) 12/30/17 14:12 Baso # (Auto) 0.1 K/uL (0.0-0.2) 12/30/17 14:12 PT 10.3 Seconds (9.8-13.1) 12/30/17 14:12 INR 0.9 (0.9-1.2) 12/30/17 14:12 APTT 30.0 Seconds (25.6-37.1) 12/30/17 14:12 Sodium 143 mmol/l (132-148) 01/01/18 04:20 Potassium 3.6 MMOL/L (3.6-5.0) 01/01/18 04:20 Chloride 100 mmol/L (98-107) 01/01/18 04:20 Carbon Dioxide 31 mmol/L (22-30) H 01/01/18 04:20 Anion Gap 16 (10-20) 01/01/18 04:20 BUN 17 mg/dl (9-20) 01/01/18 04:20 Creatinine 1.0 mg/dl (0.8-1.5) 01/01/18 04:20 Est GFR ( Amer) > 60 01/01/18 04:20 Est GFR (Non-Af Amer) > 60 01/01/18 04:20 POC Glucose (mg/dL) 266 mg/dL (65-110) H 01/01/18 10:59 Random Glucose 135 mg/dL (75-110) H 01/01/18 04:20 Calcium 9.1 mg/dL (8.4-10.2) 01/01/18 04:20 Troponin I 0.0310 ng/mL (0.00-0.120) 12/31/17 17:32 Vitamin B12 167 pg/mL (239-931) L 12/31/17 11:45 TSH 3rd Generation 1.28 mIU/ML (0.46-4.68) 12/31/17 11:45 Urine Color Yellow (YELLOW) 12/31/17 17:12 Urine Clarity Clear (Clear) 12/31/17 17:12 Urine pH 6.0 (5.0-8.0) 12/31/17 17:12 Ur Specific [place] 1.011 (1.003-1.030) 12/31/17 17:12 Urine Protein 100 mg/dL (NEGATIVE) 12/31/17 17:12 Urine Glucose (UA) 150 mg/dL (Normal) 12/31/17 17:12 Urine Ketones Trace mg/dL (NEGATIVE) 12/31/17 17:12 Urine Blood Negative (NEGATIVE) 12/31/17 17:12 Urine Nitrate Negative (NEGATIVE) 12/31/17 17:12 Urine Bilirubin Negative (NEGATIVE) 12/31/17 17:12 Urine Urobilinogen 0.2-1.0 mg/dL (0.2-1.0) 12/31/17 17:12 Ur Leukocyte Esterase Neg [place]/uL (Negative) 12/31/17 17:12 Urine RBC (Auto) 1 /hpf (0-3) 12/31/17 17:12 Urine Microscopic WBC < 1 /hpf (0-5) 12/31/17 17:12 Urine Opiates Screen Negative (NEGATIVE) 12/30/17 15:15 Urine Methadone Screen Negative (NEGATIVE) 12/30/17 15:15 Ur Barbiturates Screen Negative (NEGATIVE) 12/30/17 15:15 Ur Phencyclidine Scrn Negative (NEGATIVE) 12/30/17 15:15 Ur Amphetamines Screen Negative (NEGATIVE) 12/30/17 15:15 U Benzodiazepines Scrn Negative (NEGATIVE) 12/30/17 15:15 U Oth Cocaine Metabols Negative (NEGATIVE) 12/30/17 15:15 U Cannabinoids Screen Negative (NEGATIVE) 12/30/17 15:15 Alcohol, Quantitative < 10 mg/dl (0-10) 12/30/17 14:12 - Hospital Course Hospital Course: Evaluated with DR Bravo during morning rounds 87 y/o M admitted to due fall/syncope was evaluated by Cardio/Neuro. Imaging studies didnt show any acute ischemic or hemorrhagic events in the brain and CT neck didnt show significant carotid stenosis. Echo showed severe aortic stenosis which could have been the cause of patients symptoms. BP was elevated on admission but improved with hosp treatment. Today patient is stable and cleared by Consultants to be DC home and f/u with medical treatment as outpatient Discharge Exam - Head Exam Head Exam: absent: ATRAUMATIC (Superficial laceration on lower lip mucosal aspect;lower lip laceration on mucosal aspect; mild abrasion of nose.) - Eye Exam Eye Exam: EOMI, PERRL - ENT Exam ENT Exam: Mucous Membranes Moist - Respiratory Exam Respiratory Exam: Clear to PA & Lateral, NORMAL BREATHING PATTERN, UNREMARKABLE - Cardiovascular Exam Cardiovascular Exam: REGULAR RHYTHM, +S1, +S2, Systolic Murmur. absent: Gallop - GI/Abdominal Exam GI & Abdominal Exam: Normal Bowel Sounds, Soft, Unremarkable. absent: Distended , Guarding, Rigid, Tenderness - Extremities Exam Extremities exam: normal capillary refill, pedal pulses present - Neurological Exam Neurological exam: Alert, Oriented x3 - Psychiatric Exam Psychiatric exam: Normal Affect, Normal Mood - Skin Skin Exam: Normal Color, Warm Discharge Plan - Discharge Medications Prescriptions: Aspirin [Ecotrin] 81 mg PO DAILY #30 tabec Atorvastatin [Lipitor] 20 mg PO DAILY #30 tab Clopidogrel [Plavix] 75 mg PO DAILY #30 tab Enalapril Maleate [Vasotec] 20 mg PO BID #60 tab hydroCHLOROthiazide [Hydrodiuril] 12.5 mg PO DAILY #30 tab - Follow Up Plan Condition: STABLE Disposition: HOME/ ROUTINE Instructions: High Blood Pressure (DC), Low Salt Diet, Syncope (Fainting) (DC) , Preventing Falls Additional Instructions: pt. cleared for discharge to Home today by , and Rx for all meds provided pt. will fu with dr Bravo outpatient Referrals: Cristian Bravo MD [Staff Provider] -
[2018-01-01 21:20] VITALS: O2SAT 97
[2018-01-01 21:21] VITALS: PULSE 87
== END 2018-01-01 15:18 | disposition home or self-care (01) | DRG 307 ==
LOC: H.ER 12:41 → H.ERHOLD 15:22 → H.TEL 22:12 → OBSVTOIN 12-31 19:37
PROVIDERS: ADMIT Internal Medicine; ATTEND Internal Medicine
PROC: 3E0234Z Introduction of Serum, Toxoid and Vaccine into Muscle, Percutaneous Approach (ICD-10-PCS; principal; 2017-12-31)
DX: I35.0 Nonrheumatic aortic (valve) stenosis (principal); R55 Syncope and collapse; E11.42 Type 2 diabetes mellitus with diabetic polyneuropathy; E11.65 Type 2 diabetes mellitus with hyperglycemia; S09.90XA Unspecified injury of head, initial encounter; M50.223 Other cervical disc displacement at C6-C7 level; M47.812 Spondylosis without myelopathy or radiculopathy, cervical region; W19.XXXA Unspecified fall, initial encounter; R29.6 Repeated falls; I10 Essential (primary) hypertension; E78.00 Pure hypercholesterolemia, unspecified; M19.90 Unspecified osteoarthritis, unspecified site; H54.62 Unqualified visual loss, left eye, normal vision right eye; Z23 Encounter for immunization; Z79.02 Long term (current) use of antithrombotics/antiplatelets; Z79.82 Long term (current) use of aspirin; Z79.84 Long term (current) use of oral hypoglycemic drugs; Y92.009 Unspecified place in unspecified non-institutional (private) residence as the place of occurrence of the external cause

== ENCOUNTER 2018-08-03 09:30 | Emergency (ER) | payer MEDICARE ==
[2018-08-03 09:37] VITALS: BP 127/71; PULSE 91; RESP 22; TEMP 97.9; O2SAT 98
[2018-08-03 09:38] VITALS: BMI 25.7
--- NOTE | 2018-08-03 10:34 | ED PDOC ---
HPI: General Adult Time Seen by Provider: 08/03/18 10:22 Chief Complaint (Nursing): Trauma Chief Complaint (Provider): Mandible fractures History Per: Patient History/Exam Limitations: no limitations Onset/Duration Of Symptoms: Days (yesterday) Additional Complaint(s): Pt. fell accidentally yesterday and went to [place]. There he was dx with a mandible fx and had lip laceration sutured. Pt. was offered transfer to [facility] and [facility]. Pt. refused and AMA yesterday. Was given rx for antibiotics. Here as he wants a specialist to see him. Has no pain, weakness, headaches, dizziness, nausea, vomit, vision changes, numbness, tingles. No symptoms currently. Past Medical History Reviewed: Nursing Documentation, Vital Signs Vital Signs: Last Vital Signs Temp 97.9 F 08/03/18 09:35 Pulse 91 H 08/03/18 09:35 Resp 22 08/03/18 09:35 BP 127/71 08/03/18 09:35 Pulse Ox 98 08/03/18 09:35 - Medical History PMH: Arthritis, Asthma (NEVER HOSPITALIZED), Diabetes (Type II), HTN, Hypercholesterolemia, Pneumonia Denies: Chronic Kidney Disease - Surgical History Surgical History: Endoscopy - Family History Family History: States: Unknown Family Hx - Living Arrangements Living Arrangements: With Family - Immunization History Hx Tetanus Toxoid Vaccination: No Hx Influenza Vaccination: No Hx Pneumococcal Vaccination: No - Home Medications Home Medications: Ambulatory Orders Medication Instructions Recorded Gabapentin [Neurontin] 300 mg PO BID 12/30/17 Glipizide [Glucotrol] 10 mg PO BID 12/30/17 Clopidogrel [Plavix] 75 mg PO DAILY #30 tab 01/01/18 Atorvastatin [Lipitor] 10 mg PO HS 03/06/18 Cyanocobalamin [Vitamin B12 1000 1,000 mg PO DAILY 03/06/18 mcg Tab] Enalapril Maleate [Vasotec] 10 mg PO BID 03/06/18 Ergocalciferol (Vitamin D2) 50,000 unit PO QWK 03/06/18 [Vitamin D2] Fluticasone/Salmeterol [Advair 1 puff IH BID 03/06/18 250-50 Diskus] Sitagliptin Phos/Metformin HCl 1 tab PO BID 03/06/18 [Janumet 50-1,000 mg Tablet] amLODIPine [Norvasc] 5 mg PO DAILY 03/06/18 Amoxicillin/Clavulanate [Augmentin 1 tab PO BID #20 tab 08/02/18 875 MG-125 MG] Montelukast Sodium [Singulair] 10 mg PO DAILY 08/02/18 Simvastatin 10 mg PO HS 08/02/18 - Allergies Allergies/Adverse Reactions: Allergies Allergy/AdvReac Type Severity Reaction Status Date / Time No Known Allergies Allergy Verified 08/03/18 09:57 Review of Systems ROS Statement: Except As Marked, All Systems Reviewed And Found Negative Physical Exam - Reviewed Nursing Documentation Reviewed: Yes Vital Signs Reviewed: Yes - Physical Exam Appears: Positive for: Well, Non-toxic, No Acute Distress Head Exam: Positive for: ATRAUMATIC, NORMAL INSPECTION, NORMOCEPHALIC Skin: Positive for: Normal Color, Warm, DRY Eye Exam: Positive for: EOMI, Normal appearance, PERRL ENT: Positive for: Other (mild tender R mandible; able to open mouth; lower lip center with sutures in place, mild swelling; no induration, dc; mild tender). Negative for: Nasal Congestion, Pharyngeal Erythema Neck: Positive for: Normal, Painless ROM, Supple Cardiovascular/Chest: Positive for: Regular Rate, Rhythm Respiratory: Positive for: CNT, Normal Breath Sounds Gastrointestinal/Abdominal: Positive for: Normal Exam, Soft. Negative for: Tenderness Back: Positive for: Normal Inspection. Negative for: L CVA Tenderness, R CVA Tenderness Extremity: Positive for: Normal ROM. Negative for: Tenderness, Pedal Edema Neurologic/Psych: Positive for: Alert, general administrator II-XII, Oriented. Negative for: Motor/Sensory Deficits, Aphasia, Facial Droop - ECG O2 Sat by Pulse Oximetry: 98 Pulse Ox Interpretation: Normal - Progress ED Course And Treament: Pt. is aaox3. Has capacity to make decisions. No confusion, headaches, vision changes. Pt. and family advised that we do not have a maxilofacial surgeon in the hospital. Pt. would need to be transferred/seen by this specialist for his fracture. We can transfer/discuss his case with [facility], [facility], or [facility]. Pt. and family refuses. Pt. states he does not want to have us call or have him transferred to these places. Pt. aware of possible or decreased functioning from not getting treatment and evaluation for his injury. Will AMA. Disposition - Clinical Impression Clinical Impression: Mandibular fracture, Lip laceration - Patient ED Disposition Is Patient to be Admitted: No Counseled Patient/Family Regarding: Diagnosis, Need For Followup - Disposition Referrals: [facility] [Outside] - 08/05/18 Disposition: Against Medical Advice Disposition Time: 10:45 Condition: STABLE Additional Instructions: Return right away for further evaluation and treatment. You are aware we do not have a maxilofacial surgeon in the hospital. You would need to be transferred/seen by this specialist for this fracture. We can transfer/discuss the case with [facility], [facility], or [facility]. You are refusing. You do not want us to call or have you transferred to these or other places. You are aware of possible or decreased functioning from not getting treatment and evaluation for your injury. You are going against medical advice. Make sure to take your antibiotics for your lip laceration. Instructions: Jaw Fracture, Wound Care Forms: [facility] ED AMA
[2018-08-03] MEDS ORDERED: Tdap Vaccine 0.5 ml Vial (10-64 yrs) IM ONE (16:34)
== END 2018-08-03 11:00 | disposition left against medical advice (07) ==
LOC: H.ER 09:30
DX: S02.609G Fracture of mandible, unspecified, subsequent encounter for fracture with delayed healing (principal); S06.9X0D Unspecified intracranial injury without loss of consciousness, subsequent encounter; W19.XXXA Unspecified fall, initial encounter; I10 Essential (primary) hypertension; J45.909 Unspecified asthma, uncomplicated; E11.9 Type 2 diabetes mellitus without complications; Z79.84 Long term (current) use of oral hypoglycemic drugs; E78.00 Pure hypercholesterolemia, unspecified; S01.511D Laceration without foreign body of lip, subsequent encounter

== ENCOUNTER 2018-08-25 16:11 | Inpatient (IN) | payer MEDICARE ==
[2018-08-25 16:11] VITALS: BMI 25.7
[2018-08-25] MEDS ORDERED: Tdap Vaccine 0.5 ml Vial (10-64 yrs) IM ONE (16:55)
--- NOTE | 2018-08-25 17:44 | ED PDOC ---
HPI: General Adult Time Seen by Provider: 08/25/18 16:28 Chief Complaint (Nursing): Trauma History Per: Patient, Family (Raz (son in law)) Additional Complaint(s): Pt brought in by ambulace and EMT report pt. was found by his son in law in the house today lying face down with vomit on the floor. Pt. states all he remembers was lying down on the couch because he felt dizzy then next thing he remembers was he was in the ambulance. Currently c/o headache. Denies chest pain, SOB, weakness, N/V, neck pain, extremity pain, abd pain. PMD: Herman Lopez Past Medical History Reviewed: Historical Data, Nursing Documentation, Vital Signs Vital Signs: Last Vital Signs Temp 97.9 F 08/25/18 16:15 Pulse 53 L 08/25/18 16:15 Resp 16 08/25/18 16:15 BP 193/81 H 08/25/18 16:15 Pulse Ox 98 08/25/18 16:15 - Medical History PMH: Arthritis, Asthma (NEVER HOSPITALIZED), Diabetes (Type II), HTN, Hypercholesterolemia, Pneumonia Denies: Chronic Kidney Disease Other PMH: Aortic Stenosis - Surgical History Surgical History: Endoscopy - Family History Family History: States: No Known Family Hx - Immunization History Hx Tetanus Toxoid Vaccination: No Hx Influenza Vaccination: No Hx Pneumococcal Vaccination: No - Home Medications Home Medications: Ambulatory Orders Medication Instructions Recorded Gabapentin [Neurontin] 300 mg PO BID 12/30/17 Glipizide [Glucotrol] 10 mg PO BID 12/30/17 Clopidogrel [Plavix] 75 mg PO DAILY #30 tab 01/01/18 Atorvastatin [Lipitor] 10 mg PO HS 03/06/18 Cyanocobalamin [Vitamin B12 1000 1,000 mcg PO DAILY 03/06/18 mcg Tab] Enalapril Maleate [Vasotec] 10 mg PO BID 03/06/18 Ergocalciferol (Vitamin D2) 50,000 unit PO QWK 03/06/18 [Vitamin D2] Fluticasone/Salmeterol [Advair 1 puff IH BID 03/06/18 250-50 Diskus] Sitagliptin Phos/Metformin HCl 1 tab PO BID 03/06/18 [Janumet 50-1,000 mg Tablet] amLODIPine [Norvasc] 5 mg PO DAILY 03/06/18 Amoxicillin/Clavulanate [Augmentin 1 tab PO BID #20 tab 08/02/18 875 MG-125 MG] Montelukast Sodium [Singulair] 10 mg PO DAILY 08/02/18 Simvastatin 10 mg PO HS 08/02/18 Sitagliptin Phos/Metformin HCl 1 each PO BID 08/25/18 [Janumet Xr 50-1,000 mg Tablet] - Allergies Allergies/Adverse Reactions: Allergies Allergy/AdvReac Type Severity Reaction Status Date / Time No Known Allergies Allergy Verified 08/25/18 16:15 Review of Systems ROS Statement: Except As Marked, All Systems Reviewed And Found Negative Neurological: Positive for: Headache, Dizziness Physical Exam - Physical Exam Appears: Positive for: Well, Non-toxic, No Acute Distress Head Exam: Negative for: ATRAUMATIC, NORMAL INSPECTION (large hematoma noted ot R side of forehead), NORMOCEPHALIC Eye Exam: Positive for: Normal appearance, EOMI, PERRL. Negative for: Periorbital swelling, Periorbital tenderness ENT: Positive for: Normal ENT Inspection Neck: Positive for: Normal, Painless ROM Cardiovascular/Chest: Positive for: Regular Rate, Rhythm, Chest Non Tender (no ecchymosis noted to chest) Respiratory: Positive for: Normal Breath Sounds. Negative for: Accessory Muscle Use, Respiratory Distress Gastrointestinal/Abdominal: Positive for: Normal Exam, Bowel Sounds, Soft, Other (no ecchymosis). Negative for: Tenderness, Distended Back: Positive for: Normal Inspection. Negative for: L CVA Tenderness, R CVA Tenderness, Vertebral Tenderness (no midline cervical tenderness) Extremity: Positive for: Normal ROM Neurologic/Psych: Positive for: Alert, Oriented (x3). Negative for: Aphasia, Facial Droop - Laboratory Results Result Diagrams: 08/25/18 18:45 08/25/18 18:45 - ECG ECG: Positive for: Interpreted By Me ECG Rhythm: Positive for: Sinus Bradycardia. Negative for: ST/T Changes Rate: 57 O2 Sat by Pulse Oximetry: 98 - Radiology X-Ray: Interpreted by Me (CXR, R hand x-ray) X-Ray Interpretation: No Acute Disease - Progress ED Course And Treament: Pt's son in law, Raz, is now in ED. States at approximately 1500 today he was at home with patient when pt. asked for food. Shortly after he heard a plate break and he immediately ran to patient and he found pt. sitting down leaning b ackward against the chair c/o dizziness. He assisted pt. to the sofa and he let patient lie down then a few minutes later he returned heard something fall and he saw pt. lying face down on a carpeted floor next to the sofa with vomit on him. As per son in law pt. was conscious throughout the entire incident and speaking appropriately. Labs, CT head w/o contrast, EKG, hand x-ray, tetanus prophylaxis ordered. Pt. placed on residential monitor. FSBS: 45 Pt. given meal in ED. Pt. is Alert and awake. Happy, comfortable. 1904 CT head w/o contrast: no ICH as per radiology report. CT cervical spine w/o contrast: degenerative changes, no fx as per radiology report. Repeat FSBS: 70 1954 Case d/w Dr. Herman Govea who agrees with plan and care to keep pt. for 23 hr observation. Disposition - Clinical Impression Clinical Impression: Head injury, Dizziness, Syncope - Patient ED Disposition Is Patient to be Admitted: Yes - Disposition Disposition: Routine/Home Disposition Time: 19:08 Condition: IMPROVED Forms: [employer] ([place]) - Pt Status Changed To: Hospital Disposition Of: Observation
--- NOTE | 2018-08-25 17:46 | CT ---
Date of service: 08/25/2018 PROCEDURE: CT HEAD WITHOUT CONTRAST. HISTORY: trauma COMPARISON: CT head 12/30/2017, CT angiography 01/01/2018 TECHNIQUE: Axial computed tomography images were obtained through the head/brain without intravenous contrast. Radiation dose: Total exam DLP = 841.55 mGy-cm. This CT exam was performed using one or more of the following dose reduction techniques: Automated exposure control, adjustment of the mA and/or kV according to patient size, and/or use of iterative reconstruction technique. FINDINGS: HEMORRHAGE: No appreciable intracranial hemorrhage. Subdural windows fail to reveal evidence of high density extra-axial acute subdural hematoma. BRAIN: No mass effect or edema. Moderate atrophy and small vessel changes as were seen on prior study. No new cortical effacement identified. Stable small vessel changes in the white matter tracts. VENTRICLES: Unremarkable. No hydrocephalus. CALVARIUM: Unremarkable. PARANASAL SINUSES: Moderate stable chronic left maxillary sinusitis MASTOID AIR CELLS: . OTHER FINDINGS: There is soft tissue scalp hematoma overlying the right lateral supraorbital and frontal bone region. Underlying skull is intact. IMPRESSION: No evidence of intracranial hemorrhage or extra-axial subdural hematoma. Moderate atrophy and small vessel change. Right frontal scalp hematoma.
[2018-08-25 18:51] LABS: BASO # 0.1 K/uL (0.0-0.2); BASO % 0.4 % (0.0-2.0); EOS # 0.1 K/uL (0.0-0.7); EOS % 0.4 % (0.0-4.0); HEMOGLOBIN 13.3 g/dL (12.0-18.0); LYMPH # 0.6 K/uL (1.0-4.3); LYMPH % 4.3 % (20.0-40.0); MEAN CELL VOLUME 89.1 fl (80.0-94.0); MEAN CORPUSCULAR HEMOGLOBIN 27.8 pg (27.0-31.0); MEAN CORPUSCULAR HGB CONC 31.2 g/dL (33.0-37.0); MEAN PLATELET VOLUME 9.1 fl (7.2-11.7); MONO # 0.6 K/uL (0.0-0.8); MONO % 4.6 % (0.0-10.0); NEUT # 12.3 K/uL (1.8-7.0); NEUT % 90.3 % (50.0-75.0); NRBC % 0.1 % (0.0-0.0); PLATELET COUNT 277 K/uL (130-400); RBC 4.78 Mil/uL (4.40-5.90); RED CELL DISTRIBUTION WIDTH 15.3 % (11.5-14.5); WHITE BLOOD COUNT 13.6 K/uL (4.8-10.8)
[2018-08-25 18:56] LABS: PROTHROMBIN TIME 11.3 Seconds (9.8-13.1)
[2018-08-25 18:58] LABS: PARTIAL THROMBOPLASTIN TIME 30.4 Seconds (25.6-37.1)
[2018-08-25 19:01] LABS: ALB/GLOB RATIO 1.2 (1.0-2.1); ALBUMIN 4.2 g/dL (3.5-5.0); ALT/SGPT 20 U/L (21-72); AST/SGOT 22 U/L (17-59); BLOOD UREA NITROGEN 9 mg/dl (9-20); CALCIUM 9.7 mg/dL (8.4-10.2); GFR NON-AFRICAN AMERICAN > 60
[2018-08-25 19:20] LABS: SQUAMOUS EPITHIAL < 1 /hpf (0-5); URINE BILIRUBIN NEGATIVE (NEGATIVE); URINE BLOOD SMALL (NEGATIVE); URINE CLARITY CLEAR (Clear); URINE COLOR YELLOW (YELLOW); URINE GLUCOSE (UA) NEG (Normal); URINE LEUKOCYTE ESTERASE NEG Leu/uL (Negative); URINE PROTEIN 30 mg/dL (NEGATIVE); URINE UROBILINOGEN 0.2-1.0 mg/dL (0.2-1.0)
[2018-08-25 19:39] LABS: ANISOCYTOSIS SLIGHT; BANDS 4 % (0-2); LYMPHOCYTE 12 % (20-50); MONOCYTE 4 % (0-10); NEUTROPHIL 80 % (42-75); OVALOCYTES SLIGHT; PLATELET ESTIMATE NORMAL (NORMAL); POIKILOCYTOSIS SLIGHT; TOTAL CELLS COUNTED 100
[2018-08-26 05:24] LABS: BASO # 0.1 K/uL (0.0-0.2); BASO % 0.8 % (0.0-2.0); EOS # 0.2 K/uL (0.0-0.7); EOS % 2.5 % (0.0-4.0); HEMOGLOBIN 12.8 g/dL (12.0-18.0); LYMPH # 1.1 K/uL (1.0-4.3); LYMPH % 12.5 % (20.0-40.0); MEAN CELL VOLUME 86.1 fl (80.0-94.0); MEAN CORPUSCULAR HEMOGLOBIN 27.6 pg (27.0-31.0); MEAN CORPUSCULAR HGB CONC 32.1 g/dL (33.0-37.0); MONO # 0.7 K/uL (0.0-0.8); MONO % 8.4 % (0.0-10.0); NEUT # 6.5 K/uL (1.8-7.0); NEUT % 75.8 % (50.0-75.0); RBC 4.64 Mil/uL (4.40-5.90); RED CELL DISTRIBUTION WIDTH 14.6 % (11.5-14.5); WHITE BLOOD COUNT 8.6 K/uL (4.8-10.8)
[2018-08-26 05:28] LABS: URINE AMORPHOUS SEDIMENT RARE /ul (<OCC); URINE BILIRUBIN NEGATIVE (NEGATIVE); URINE BLOOD SMALL (NEGATIVE); URINE CLARITY SLIGHTY-CLOUDY (Clear); URINE COLOR YELLOW (YELLOW); URINE GLUCOSE (UA) NEG (Normal); URINE HYALINE CAST 0-2 /hpf (0-2); URINE LEUKOCYTE ESTERASE NEG Leu/uL (Negative); URINE PROTEIN 30 mg/dL (NEGATIVE); URINE UROBILINOGEN 0.2-1.0 mg/dL (0.2-1.0)
[2018-08-26 05:46] LABS: LDL CHOLESTEROL 55 mg/dL (0-129)
[2018-08-26] MEDS ORDERED: Tdap Vaccine 0.5 ml Vial (10-64 yrs) IM ONE (05:48)
[2018-08-26 05:53] LABS: ALB/GLOB RATIO 1.2 (1.0-2.1); ALBUMIN 3.9 g/dL (3.5-5.0); ALT/SGPT 22 U/L (21-72); AST/SGOT 17 U/L (17-59); BLOOD UREA NITROGEN 6 mg/dl (9-20); CALCIUM 9.5 mg/dL (8.4-10.2); GFR NON-AFRICAN AMERICAN > 60; HDL CHOLESTEROL 54 MG/DL (30-70)
[2018-08-26] MEDS: Insulin Regular 100 units/ml SC SCH ×4 (09:25→22:12)
--- NOTE | 2018-08-26 10:04 | RAD ---
PROCEDURE: Right Hand Radiographs. HISTORY: trauma COMPARISON: None. FINDINGS: BONES: No acute fracture or destructive bony lesion identified. JOINTS: Diffuse articular cortical sclerosis appreciate throughout the joints of the right hand, seen worst at the carpal metacarpal joints and interphalangeal joints diffusely. SOFT TISSUES: Normal. OTHER FINDINGS: None. IMPRESSION: No acute fracture, dislocation or subluxation right hand. Diffuse degenerative changes are as discussed above.
--- NOTE | 2018-08-26 10:07 | CARD ---
APPROVED REPORT Date of service: 08/25/2018 EKG Measurement Heart [id number] <Conclusion> Sinus bradycardia Incomplete right bundle branch block Borderline ECG
--- NOTE | 2018-08-26 10:11 | RAD ---
Date of service: 08/25/2018 HISTORY: fall, dizziness COMPARISON: No prior. FINDINGS: LUNGS: No active pulmonary disease. PLEURA: No significant pleural effusion identified, no pneumothorax apparent. CARDIOVASCULAR: Calcific atherosclerotic changes are seen related to the thoracic aorta. Stable cardiomegaly. No pulmonary vascular congestion. OSSEOUS STRUCTURES: No significant abnormalities. VISUALIZED UPPER ABDOMEN: Normal. OTHER FINDINGS: None. IMPRESSION: Stable cardiomegaly. No interval acute cardiopulmonary disease appreciable.
--- NOTE | 2018-08-26 10:56 | CT ---
Date of service: 08/25/2018 PROCEDURE: CT Cervical Spine without contrast HISTORY: trauma COMPARISON: 12/30/2017 CT cervical spine TECHNIQUE: Axial computed tomography images were obtained of the cervical spine without the use of intravenous contrast. Coronal and sagittal reformatted images were created and reviewed. Radiation dose: Total exam DLP = 302.35 mGy-cm. This CT exam was performed using one or more of the following dose reduction techniques: Automated exposure control, adjustment of the mA and/or kV according to patient size, and/or use of iterative reconstruction technique. FINDINGS: VERTEBRAE: No fracture. Normal alignment. No destructive bony lesion. DISCS/SPINAL CANAL/NEURAL FORAMINA: Multilevel degenerative changes most severe at C3-4 and C6-7. No evidence of jumped or locked facet. PARASPINAL SOFT TISSUES: Unremarkable. OTHER FINDINGS: None. IMPRESSION: No acute findings related to/accounting for the clinical presentation. No significant interval change compared to the prior examination(s). Concordant results (preliminary interpretation) provided by [employer] [facility]. Procedure Completed: 17:29. Preliminary Report: Dictated and Authenticated: 18:54. Final Interpretation: 10:53. August 27, 2018
--- NOTE | 2018-08-26 11:02 | CARD ---
APPROVED REPORT Date of service: 08/26/2018 EXAM: Two-dimensional and M-mode echocardiogram with Doppler and color Doppler. Other Information Quality : GoodRhythm : NSR INDICATION Syncope 2D DIMENSIONS IVSd1.65 (0.7-1.1cm)LVDd4.25 (3.9-5.9cm) LVOT Diameter2.05 (1.8-2.4cm)PWd1.13 (0.7-1.1cm) IVSs1.76 (0.8-1.2cm)LA Zghgjf91 (18-58mL) LVDs3.15 (2.5-4.0cm)FS (%) 25.8 % PWs1.43 (0.8-1.2cm)SV40.86 ml LVEF (%)51.0 (>50%)CO2.41 L/min M-Mode DIMENSIONS Left Atrium (MM)4.12 (2.5-4.0cm)IVSd1.47 (0.7-1.1cm) Aortic Root3.00 (2.2-3.7cm)LVDd4.79 (4.0-5.6cm) Aortic Cusp Exc.1.00 (1.5-2.0cm)PWd1.68 (0.7-1.1cm) IVSs1.76 cmFS (%) 40 % LVDs2.85 (2.0-3.8cm)PWs2.26 cm Aortic Valve AoV Peak Xllwhxbg416.1cm/sAoV VTI55.8cmAO Peak GR.27mmHg LVOT Peak Kvhoprgq22.1cm/sLVOT VTI20.94cmAO Mean GR.15mmHg SEE (VMAX)0.06wj4DJH (VTI)0.74cm2 Mitral Valve MV E Kczybocu45.1cm/sMV DECEL [id number] A Hzijehvh985.6cm/s MV YAM41uiM/A ratio0.5MVA (PHT)2.35cm2 TDI Lateral E' Peak V6.36cm/sMedial E' Peak V5.05cm/sE/Lateral E'9.4 E/Medial E'11.9 LEFT VENTRICLE The left ventricle is normal size. There is mild concentric left ventricular hypertrophy. The left ventricular systolic function is normal. The estimated ejection fraction is 55-60% No regional wall motion abnormalities noted.. Transmitral Doppler flow pattern is Grade I-abnormal relaxation pattern. No left ventricle thrombus noted on this study. There is no ventricular septal defect visualized. There is no left ventricular aneurysm. There is no mass noted in the left ventricle. RIGHT VENTRICLE The right ventricle is normal size. There is normal right ventricular wall thickness. The right ventricular systolic function is normal. ATRIA The left atrium is mild to moderately dilated. The right atrium size is normal. The interatrial septum is intact with no evidence for an atrial septal defect. AORTIC VALVE The aortic valve leaflets are moderately calcified with reduced cusp separation. Mild aortic regurgitation is present. There is moderate aortic valvular stenosis. Peak AV velocity is 2.58 m/sec and calculated SEE is 1.23 cm2 There is no aortic valvular vegetation. MITRAL VALVE The mitral valve is normal in structure. There is no evidence of mitral valve prolapse. There is no mitral valve stenosis. There is mild mitral valve regurgitation noted. TRICUSPID VALVE The tricuspid valve is normal in structure. There is mild tricuspid valve regurgitation noted. There is no tricuspid valve prolapse or vegetation. There is no tricuspid valve stenosis. PULMONIC VALVE The pulmonary valve is normal in structure. There is no pulmonic valvular regurgitation. There is no pulmonic valvular stenosis. GREAT VESSELS The aortic root is normal in size. The ascending aorta is normal in size. The pulmonary artery is normal. The IVC is normal in size and collapses >50% with inspiration. PERICARDIAL EFFUSION There is no pericardial effusion. There is no pleural effusion. <Conclusion> There is mild concentric left ventricular hypertrophy. The estimated ejection fraction is 55-60% Transmitral Doppler flow pattern is Grade I-abnormal relaxation pattern. The left atrium is mild to moderately dilated. Mild aortic regurgitation is present. There is moderate aortic valvular stenosis. Peak AV velocity is 2.58 m/sec and calculated SEE is 1.23 cm2 There is mild mitral valve regurgitation noted. There is mild tricuspid valve regurgitation noted.
--- NOTE | 2018-08-26 11:38 | US ---
Date of service: 08/26/2018 PROCEDURE: Duplex ultrasound of the carotid and vertebral arteries. HISTORY: syncope COMPARISON: None available. TECHNIQUE: Grayscale and duplex Doppler evaluation of the cervical carotid and vertebral arteries were performed. The common carotid, carotid bifurcations and cervical ICA and proximal ECA were evaluated. The vertebral arteries were evaluated for gross patency and direction. FINDINGS: RIGHT CAROTID ARTERIES: Common Carotid Artery: Maximal flow velocity of 41 cm/s. Carotid Bifurcation: Intimal thickening is present Internal Carotid Artery:Heterogeneous plaque formation. Maximal flow velocity of 85 cm/s. External Carotid Artery (proximal branches): Maximal flow velocity of 77 cm/s. ICA/CCA Ratio: 2.0 LEFT CAROTID ARTERIES: Common Carotid Artery: Maximal flow velocity of 60.8 cm/s. Carotid Bifurcation: Intimal thickening is present Internal Carotid Artery:Heterogeneous plaque formation. Tortuous left ICA maximal flow velocity of 90.2 cm/s. External Carotid Artery (proximal branches): Maximal flow velocity of 64.6 cm/s. ICA/CCA Ratio: 1.5 VERTEBRAL ARTERIES: Right Vertebral Artery: Patent. Antegrade flow. Left Vertebral Artery: Patent. Antegrade flow. OTHER FINDINGS: Atherosclerotic calcification present. IMPRESSION: Right ICA degree of stenosis: Less than 50% Left ICA degree of stenosis: Less than 50% Reference Internal Carotid Artery (ICA) Peak Systolic Velocity (PSV) for above: 1. Less than 50% stenosis less than 125 cm/s peak systolic velocity 2. 50-69% stenosis 125-230cm/s peak systolic velocity 3. Greater than 70% but less than near occlusion greater than 230 cm/s peak systolic velocity
--- NOTE | 2018-08-26 11:42 | CP.PCM.PN ---
Subjective - Date & Time of Evaluation Date of Evaluation: 08/26/18 Time of Evaluation: 11:41 - Subjective Subjective: Patient is seen and examined at bedside. He is confused, oriented to person and place. H&P dictated #[id number] Objective - Vital Signs/Intake and Output Vital Signs (last 24 hours): Temp Pulse Resp BP Pulse Ox 98.0 F 58 L 16 180/88 H 97 08/26/18 09:29 08/26/18 09:29 08/26/18 09:29 08/26/18 09:29 08/26/18 09:29 - Medications Medications: Current Medications Cyanocobalamin (Vitamin B12 1000 Mcg Tab) 1,000 mcg PO DAILY [facility] Last Admin: 08/26/18 09:23 Dose: 1,000 mcg Enalapril Maleate (Vasotec) 10 mg PO BID [facility] Last Admin: 08/26/18 09:24 Dose: 10 mg Gabapentin (Neurontin) 300 mg PO BID [facility] Last Admin: 08/26/18 09:26 Dose: 300 mg Glipizide (Glucotrol) 10 mg PO BIDAC [facility] Last Admin: 08/26/18 09:25 Dose: 10 mg Insulin Human Regular (Humulin R) 1 units SC [facility]; Protocol Last Admin: 08/26/18 09:25 Dose: Not Given Metformin HCl (Glucophage) 1,000 mg PO BIDWM [facility] Last Admin: 08/26/18 09:24 Dose: 1,000 mg Montelukast Sodium (Singulair) 10 mg PO [facility] Sitagliptin Phosphate (Januvia) 50 mg PO DAILY [facility] Last Admin: 08/26/18 09:26 Dose: 50 mg - Labs Labs: 08/26/18 05:15 08/26/18 05:15 PT 11.3 Seconds (9.8-13.1) 08/25/18 18:45 INR 1.0 08/25/18 18:45 APTT 30.4 Seconds (25.6-37.1) 08/25/18 18:45
--- NOTE | 2018-08-26 15:26 | MRI ---
Date of service: 08/26/2018 PROCEDURE: MRI BRAIN WITHOUT CONTRAST HISTORY: R/O mass Vs stroke COMPARISON: None available. TECHNIQUE: Multiplanar, multisequence MR images of the brain were obtained without intravenous contrast enhancement. FINDINGS: HEMORRHAGE: None DWI: No evidence of an acute or early subacute infarction. BRAIN PARENCHYMA: Good corticomedullary differentiation is seen. Reiterated diffuse cerebral atrophy and chronic microangiopathy. No suspicious extra-axial fluid collection is identified and the midline brain anatomy appears grossly nonfocal as imaged. No mass effect identified. VENTRICLES: Unremarkable. No hydrocephalus. CRANIUM: Unremarkable. ORBITS: Grossly unremarkable. PARANASAL SINUSES/MASTOIDS: Incidental prominent left maxillary sinusitis reiterated. VASCULAR SYSTEM: Skull base flow voids intact. OTHER FINDINGS: Right frontal scalp hematoma and edema reiterated. IMPRESSION: No acute intracranial findings including brain infarction or hemorrhage. Age related neuro degenerative findings are reiterated, appearing age appropriate for this patient. Moderate right frontal scalp hematoma/edema reiterated. No definitive intracranial mass. Contrast MRI can be utilized for more definitive intracranial evaluation if clinically warranted.
[2018-08-26 16:10] LABS: PROLACTIN 9.2 ng/mL (3.7-17.9)
--- NOTE | 2018-08-27 00:45 | CON ---
DATE: 08/26/2018 REASON FOR CONSULTATION: Aortic stenosis and a fall episode. HISTORY OF PRESENT ILLNESS: The patient is an 87-year-old male who was found by his son, Morena, on the floor of his house with face down. EMS was activated. The patient was reported to the emergency room, and the patient at this time is confused and does not give any reliable answers. According to the primary physician, Dr. Lopez, the patient was being followed by Dr. Felton and was treated for aortic stenosis, but no intervention was performed or planned. At this time, the patient denies chest pain or dizziness. The patient denies any headache. SOCIAL HISTORY: Nonsmoker. Apparently, he lives with his and he used to have his son with him but his son moved recently to [place]. MEDICATIONS: Aspirin 81 mg once a day, Glucophage 1 g twice a day, glipizide 5 mg twice a day, Januvia 50 mg once a day, Norvasc 10 mg once a day, Plavix 75 mg once a day, Vasotec 10 mg twice a day, vitamin B12 of 1 mg IM daily. REVIEW OF SYSTEMS: No reported nausea or vomiting. No reported hypotension. PHYSICAL EXAMINATION: GENERAL: The patient is an elderly male who does not appear to be in acute distress. VITAL SIGNS: Blood pressure 181/95, heart rate 65, temperature 98.5, respirations 16. HEENT: Right eye ecchymosis. NECK: No JVD. CHEST: Clear. HEART: S1 and S2 regular. ABDOMEN: Soft. EXTREMITIES: No edema. LABORATORY DATA: EKG revealed sinus bradycardia, rate of 57, incomplete right bundle branch block. Carotid Doppler, no significant disease. Cervical spine CT scan, no acute findings. Head CT scan without contrast, soft tissue scalp hematoma overlying the right lateral supraorbital and frontal bone region. Underlying skull is intact. Brain MRI was performed, but the report is still pending. Chest x-ray, stable cardiomegaly. Echocardiographic study revealed normal ejection fraction, mildly dilated left atrium, mild aortic insufficiency, moderate valvular aortic stenosis with the valve area calculated at 1.23 sq cm. ASSESSMENT: 1. Status post fall with facial injury, that is, right periorbital ecchymosis and a scalp hematoma. 2. Moderate aortic stenosis. 3. Hypertension and diabetes mellitus. RECOMMENDATIONS: Continue current telemetry monitoring. Continue aspirin 81 mg once a day, Norvasc 10 mg once a day, Plavix 75 mg once a day, and Vasotec 10 mg twice a day. I will try to reach his family for more information about his past cardiac history. Sinus bradycardia as well as moderate aortic stenosis can be incriminated in the patient's current presentation with fall and most likely syncopal episode. I would follow the brain MRI results. Josse Ramires MD
--- NOTE | 2018-08-27 03:59 | CON ---
DATE: 08/26/2018 ATTENDING PHYSICIAN: Nissa Lopez MD LOCATION: The patient's room number, ER bed 7. REASON FOR CONSULTATION: Status post fall. CHIEF COMPLAINT: The patient was brought in by his son-in-law stating that he was found on the floor with vomiting on the floor. The patient could not recall how he went down to the floor. From neurological point of view, I was called in to evaluate for further management. HISTORY OF PRESENT ILLNESS: Mr. Chris Aguillon is an 87-year-old right-handed male presenting with change in mental status manifesting with fall from his bed. He could not recall how he fell down from the bed. From the fall, he hit his head on his right side. No witnessed tonic-clonic activities. No witnessed bowel or bladder incontinence. However, at the scene, the patient was vomiting. He claims that he got out of the couch because he felt dizzy. At present, he denies headache. No visual or bulbar dysfunction. He moves all four extremities. PAST MEDICAL HISTORY: Arthritis, asthma, diabetes, dementia, hypertension, dyslipidemia. ALLERGIES: NO KNOWN ALLERGIES. REVIEW OF SYSTEMS: A 12-point system being reviewed. From neuro, change in mental status. MEDICATIONS: Aspirin, Glucophage, Glucotrol, Humulin, Januvia, Norvasc, Plavix, Singulair, Vasotec, vitamin B12. PHYSICAL EXAMINATION: VITAL SIGNS: Blood pressure 114/60, mean arterial pressure of 78, respiratory rate 18, temperature 98.2, pulse rate is 80 and regular. NECK: Supple. No carotid bruits. HEART: Sounds regular. CHEST: Fair air entry. EXTREMITIES: No edema. HEAD: Examination of the skull, right frontotemporal region ecchymosis with swelling. No bony tenderness. NEUROLOGIC EXAMINATION: Mental status examination: He is awake, alert, oriented to person only. His speech is fluent in [place]. He follows one step command, significant right and left confusion. Cranial nerve examination: Responds to visual threat. Pupils reactive to light. Extraocular movement moderately decreased in all direction. No facial sensory deficit. No facial asymmetry. Hearing is normal. Tongue is midline. Good gag. Motor examination: He was able to lift both upper extremities against gravity. Deep tendon reflexes: Biceps, brachialis, triceps trace. Both knees are 3+. Both ankles are trace. Plantars are downgoing. Sensory examination: Grossly intact. No cortical sensory loss. Gait: He was able to walk purposefully. No dragging. No weakness noted. CONCLUSION: Mr. Chris Aguillon as per neurological examination, presenting with possible post concussion syndrome from his fall. Reason for the fall is still undetermined at present. He claims dizziness could be vertebrobasilar insufficiency, could be the cause for his fall; however, seizures or other possible from neurological point of view. Being a diabetic, hypoglycemia and cardiac arrhythmias should be ruled out for his syncopal attack. WORKUP: CT of the head been reviewed. MRI of the brain also reviewed, showed global atrophy with periventricular ischemic changes noted extensively. Significant atrophy also noted. Right frontal soft tissue swelling seen. EKG, normal sinus rhythm. LABORATORY DATA: WBC 8.6, hemoglobin 12.8, hematocrit 40.1, platelet is 258. PT 11.3, INR 1, PTT is 30.4. Sodium 139, potassium 4.3, chloride 104, bicarbonate 28, BUN 6, creatinine 0.6, glucose 114. LDL 55, HDL 54, B12 381, cholesterol 112. Alcohol level less than 10. RECOMMENDATIONS: The patient should be kept fall precaution. The patient presenting with ADL related dementia. If medically stable and hydrated well, the patient can be discharged from neurological point of view. The patient can be benefited on starting cholinesterase inhibitor which can be done as outpatient. Donepezil or memantine can be started and dose can be slowly titrated as he tolerates it. No further investigation is necessary while he is in the hospital; however, EEG is recommended, which is pending at present and that will be reviewed by me. Boogie Senior MD
--- NOTE | 2018-08-27 05:18 | HP ---
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 HISTORY OF PRESENT ILLNESS: Mr. Aguillon is an 87-year-old male with past medical history of hypertension, hyperlipidemia, diabetes mellitus, moderate aortic stenosis, COPD who is noncompliant with his medications and doctor's visits. Came into the ED, brought by EMS as the patient's family found the patient face down with vomit on the floor. The patient is known to me. He is noncompliant and not able to keep up with his visits to the office, missed multiple visits. When I spoke to the patient at bedside, the patient is confused; unable to give detailed history of what happened but as documented in the ED note, the patient claimed that he felt dizzy and then the next thing he remembered was being in the ambulance. When I examined, he denies any headache or dizziness. Denies any chest pain, shortness of breath or wheezing. Denies any nausea, vomiting, abdominal pain, diarrhea, or constipation. Denies any urinary complaints. Denies any leg pains or leg cramps. 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 He was also asking if I have any job for him today. I also spoke to the patient via a Croatian-speaking escalator installer through the hospital provided services. The patient feels confused persistently. PAST MEDICAL HISTORY: As described, diabetes mellitus, hypertension, hyperlipidemia, COPD, aortic stenosis. PAST SURGICAL HISTORY: Prostatectomy in 2005, cataract surgery. FAMILY HISTORY: Father at age 96. PERSONAL HISTORY: He lives alone with a caregiver. He has one son who lives in [place]. SOCIAL HISTORY: He is an ex-smoker. Denies smoking, alcohol or drug abuse. ALLERGIES: NO KNOWN DRUG ALLERGIES. MEDICATIONS: His medications include amlodipine 10 mg daily, aspirin 81 mg daily, Plavix 75 mg daily, Vasotec 10 mg b.i.d., glipizide 10 mg p.o. b.i.d., metformin 1000 mg b.i.d., Januvia 50 mg b.i.d. REVIEW OF SYSTEMS: As described in history of present illness. PHYSICAL EXAMINATION: GENERAL: Elderly male, lying in bed, in no acute distress. VITAL SIGNS: Blood pressure 181/95, pulse 65, respirations 16, temperature 98.2 degrees Fahrenheit, O2 sat is 94% on room air. HEENT: Pupils equal, round, reactive to light and accommodation. Extraocular muscles intact. No icterus. No pallor. Right upper eyelid and frontal region with bruising and contusion noted. No oral thrush. No oropharyngeal congestion. NECK: Supple. No JVD. LUNGS: Bilateral vesicular breath sounds. No wheezing. No rhonchi. CARDIOVASCULAR SYSTEM: S1 and S2 present, regular. Early diastolic murmur noted. ABDOMEN: Soft, nontender. Bowel sounds present. No guarding. No rigidity. No rebound tenderness noted. CENTRAL NERVOUS SYSTEM: Alert, awake, and oriented x2. No focal deficits noted. EXTREMITIES: No edema. Palpable peripheral pulses. LABORATORY DATA: Labs done from the ED: WBC 13.6, hemoglobin 13.3, hematocrit 42.5, platelets 277. PT 11.3, INR 1, PTT 30.4. Sodium 142, potassium 4.7, chloride 105, bicarb 27, BUN 9, creatinine 0.7, glucose 77, hemoglobin A1c 5.5, calcium 9.5. Total bilirubin 0.4, AST 22, ALT 20, alkaline phosphatase 78. Cardiac enzymes x2 negative. Total protein 7.7, albumin 4.2. Cholesterol 112, LDL 55, HDL 54, triglycerides 99. B12 of 381, folate 8. TSH 1.46. Prolactin 9.2. UA negative. Alcohol, less than 10. Head CT: No evidence of intracranial hemorrhage or extra-axial subdural hematoma, moderate atrophy, right frontal scalp hematoma. Chest x-ray: No cardiopulmonary disease appreciated. Hand x-rays: No acute fracture, dislocation or subluxation of right hand. Cervical spine CT: No acute findings related to further clinical presentation. Carotid Doppler: Less than 50% of stenosis in both right and left ICA. MRI of the brain: No acute intracranial findings including brain infarction or hemorrhage. Moderate right frontal scalp hematoma. No definitive intracranial mass. ASSESSMENT: Elderly male with history of hypertension, hyperlipidemia, diabetes mellitus, chronic obstructive pulmonary disease, moderate aortic stenosis who had multiple visits to the emergency department in the recent months, was evaluated in the emergency department on 09/02/2018 for fall and 09/03/2018 with the similar complaint of head injury. Came into the emergency department, brought by [facility] for symptoms of the patient found unresponsive on the floor. His Accu-Chek at that was 45 and in the emergency department this morning, the patient remains confused and the patient is being admitted for further evaluation. 1. Status post syncope, rule out secondary to hypoglycemic episode, rule out secondary to worsening of his aortic stenosis symptoms, rule out neurologic causes, rule out acute coronary syndrome, rule out cardiac arrhythmias. 2. Status post hypoglycemia, no Accu-Cheks in the past. 3. Altered mental status. 4. History of hypertension. 5. History of diabetes mellitus. 6. History of hyperlipidemia. 7. History of chronic obstructive pulmonary disease. 8. History of aortic stenosis. PLAN: The patient is being admitted to Telemetry. We will do serial cardiac enzymes, serial EKGs. We will check echo report. Obtain cardiology evaluation and neurology evaluation. Neuro checks every 4 hours. Discussed with Cardiology. Blood pressure is running high. We will restart his home medications. His hemoglobin A1c is very low. We will decrease glipizide from 10 mg b.i.d. to 5 mg daily. Continue with metformin 1000 mg b.i.d. and Januvia 50 mg daily. We will do Accu-Chek every before meals and at bedtime. We will discuss with the caregiver about the events happening recently with recurrent fall. We will give DVT and GI prophylaxis. We will add further recommendations as his clinical course progresses. Nissa Lopez MD
[2018-08-27] MEDS: Insulin Regular 100 units/ml SC SCH ×4 (06:39→21:39)
--- NOTE | 2018-08-27 10:18 | CP.PCM.PN ---
Subjective - Date & Time of Evaluation Date of Evaluation: 08/27/18 Time of Evaluation: 10:17 - Subjective Subjective: Progress note dictated #[id number] Objective - Vital Signs/Intake and Output Vital Signs (last 24 hours): Temp Pulse Resp BP Pulse Ox 98.1 F 61 18 150/81 97 08/27/18 09:14 08/27/18 09:14 08/27/18 09:14 08/27/18 09:14 08/27/18 09:14 - Medications Medications: Current Medications Amlodipine Besylate (Norvasc) 10 mg PO DAILY [facility] Last Admin: 08/26/18 12:22 Dose: 10 mg Aspirin (Ecotrin) 81 mg PO DAILY [facility] Last Admin: 08/26/18 12:22 Dose: 81 mg Clopidogrel Bisulfate (Plavix) 75 mg PO DAILY [facility] Last Admin: 08/26/18 12:22 Dose: 75 mg Cyanocobalamin (Vitamin B12 1000 Mcg/Ml Inj) 1,000 mcg IM DAILY [facility] Last Admin: 08/26/18 12:28 Dose: 1,000 mcg Enalapril Maleate (Vasotec) 10 mg PO BID [facility] Last Admin: 08/26/18 18:17 Dose: 10 mg Glipizide (Glucotrol) 5 mg PO ACB [facility] Insulin Human Regular (Humulin R) 1 units SC [facility]; Protocol Last Admin: 08/27/18 06:39 Dose: Not Given Metformin HCl (Glucophage) 1,000 mg PO BIDWM [facility] Last Admin: 08/26/18 18:17 Dose: 1,000 mg Montelukast Sodium (Singulair) 10 mg PO HS [facility] Last Admin: 08/26/18 22:12 Dose: 10 mg Sitagliptin Phosphate (Januvia) 50 mg PO DAILY [facility] Last Admin: 08/26/18 09:26 Dose: 50 mg - Labs Labs: 08/26/18 05:15 08/26/18 05:15 PT 11.3 Seconds (9.8-13.1) 08/25/18 18:45 INR 1.0 08/25/18 18:45 APTT 30.4 Seconds (25.6-37.1) 08/25/18 18:45
--- NOTE | 2018-08-27 14:07 | PCM.EEG ---
Electroencephalogram Report - Electroencephalogram Report Procedure Date: 08/27/18 Medication: Gabapentin, ASA, Plavix, Metformin Interpretation: Technical Information: This was a 16-channel EEG, 1-channel EKG , performed using an Wami machine., electrodes were applied according to the 10/20 international placement system, impedances were less than 5 K Ohm. Study start 9;58 AM Study end; 10;43 AM Total; 56 minutes Clinical Information: This EEG was performed on a 87 year old patient with a recent episode of LOC. EEG Detail: During resting wakefulness there was a symmetric posterior dominant rhythm at 7 Hz, 30-50 uV, which was reactive to eye opening and closing. Drowsiness was associated with fragmentation of the posterior dominant rhythm and with slow roving eye movements. Sleep was not seen. There were occasional bursts of bi frontal paroxysmal activity at 7 to 8 Hz, lasting less than 1 second, this was seen during wakefulness and sleep. Drowsiness was seen at 10;38 and characterized by diffuse 6 Hz slowing. Sleep not seen. Hyperventilation was not performed. Photic stimulation was performed and there were no changes in the record. ECG was associated with a normal sinus rhythm. 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 These findings do not support a specific etiology.
--- NOTE | 2018-08-27 19:35 | PN ---
DATE: 07/27/2018 SUBJECTIVE: The patient denies any dizziness, headache or chest pain. The monitor revealed runs of ventricular bigeminy. PHYSICAL EXAMINATION: VITAL SIGNS: Blood pressure 150/81, heart rate 61, temperature 98.1, respirations 18. HEENT: Periorbital ecchymosis. NECK: No JVD. CHEST: Clear. HEART: S1 and S2, regular. EXTREMITIES: No edema. LABORATORY DATA: Brain MRI, no acute intracranial findings including brain infarction or hemorrhage. Age-related new findings. Moderate right frontal scalp hematoma/edema. No definitive intracranial mass. Carotid Doppler, less than 50% stenosis of both internal carotid arteries. Echocardiogram study revealed normal ejection fraction, mild aortic insufficiency and moderate valvular aortic stenosis. ASSESSMENT: 1. Moderate valvular aortic stenosis. 2. Status post fall and right eye ecchymosis. 3. Uncontrolled diabetes mellitus. RECOMMENDATIONS: Continue current aspirin 81 mg once a day, Glucophage 1 g twice a day, Norvasc 10 mg once a day, Plavix 75 mg once a day, Vasotec 10 mg twice a day. Once the patient is neurologically cleared, we will discuss with the family the need for cardiac catheterization. Josse Ramires MD cc:
--- NOTE | 2018-08-28 00:03 | PN ---
DATE: 08/27/2018 SUBJECTIVE: The patient is seen and examined at bedside. The patient offers no new complaints. The patient appears to be confused, oriented to person and place. Undergoing EEG testing. Denies any other complaints. PHYSICAL EXAMINATION: GENERAL: Elderly male, lying in bed, in no acute distress. VITAL SIGNS: Blood pressure 142/79, pulse 61, respirations 18, temperature 98.5 degrees Fahrenheit, O2 sat is 98% on room air. HEENT: Pupils equal, round, and reacting to light and accommodation. Extraocular muscles intact. No icterus. No pallor. No oral thrush. No oropharyngeal congestion. NECK: Supple. No JVD. Right front region contusion with ecchymosis noted. LUNGS: Bilateral vesicular breath sounds. No wheezing. No rhonchi. CARDIOVASCULAR SYSTEM: S1 and S2 present, regular. Early diastolic murmur noted. ABDOMEN: Soft, nontender. Bowel sounds present. No guarding, no rigidity, no rebound tenderness noted. CENTRAL NERVOUS SYSTEM: Alert, awake, oriented x2. No focal deficits noted. EXTREMITIES: No edema. Palpable peripheral pulses. MEDICATIONS: Include Norvasc 10 mg daily, aspirin 81 mg daily, Plavix 75 mg daily, vitamin B12 1000 mcg daily, Vasotec 10 mg p.o. b.i.d., glipizide 5 mg daily, metformin 1000 mg p.o. b.i.d., Singulair 10 mg p.o. at bedtime, and Januvia 50 mg daily. LABORATORY DATA: Labs done from today: Glucose 114, 178, 98, 145, 138. EEG consistent with abnormal EEG record that demonstrates the presence of a mild nonspecific diffuse disturbance of cortical activity. This is in keeping with diffuse rivera matter dysfunction. These findings do not support a specific etiology. ASSESSMENT AND PLAN: Elderly male with history of hypertension, diabetes mellitus, hyperlipidemia, moderate aortic stenosis, chronic obstructive pulmonary disease. Admitted for syncope, status post fall with right frontal hematoma. CT and MRI negative for any neurologic events. Electroencephalogram negative for any seizure activity. Continue with current blood pressure medications and his hypoglycemics adjusted. Discussed with Cardiology for possible cardiac catheterization on . Continue with other current medications. We will obtain social work assistant consult. We will discuss with the patient's family to obtain consent. We will consider psychiatric evaluation if needed and if unable to get hold of the patient's family. We will repeat labs in the morning. Continue with deep venous thrombosis and gastrointestinal prophylaxis. We will request physical therapy and occupational therapy. Nissa Lopez MD
[2018-08-28 06:11] LABS: BASO % 0.6 % (0.0-2.0); EOS # 0.3 K/uL (0.0-0.7); EOS % 4.2 % (0.0-4.0); HEMOGLOBIN 13.5 g/dL (12.0-18.0); LYMPH # 1.6 K/uL (1.0-4.3); LYMPH % 20.5 % (20.0-40.0); MEAN CELL VOLUME 88.6 fl (80.0-94.0); MEAN CORPUSCULAR HGB CONC 31.6 g/dL (33.0-37.0); MEAN PLATELET VOLUME 9.1 fl (7.2-11.7); MONO # 0.8 K/uL (0.0-0.8); MONO % 10.2 % (0.0-10.0); NEUT # 4.9 K/uL (1.8-7.0); NEUT % 64.5 % (50.0-75.0); NRBC % 0.2 % (0.0-0.0); RBC 4.84 Mil/uL (4.40-5.90); RED CELL DISTRIBUTION WIDTH 14.7 % (11.5-14.5); WHITE BLOOD COUNT 7.7 K/uL (4.8-10.8)
[2018-08-28 06:27] LABS: ALB/GLOB RATIO 1.2 (1.0-2.1); ALBUMIN 3.8 g/dL (3.5-5.0); ALT/SGPT 20 U/L (21-72); AST/SGOT 18 U/L (17-59); BLOOD UREA NITROGEN 15 mg/dl (9-20); CALCIUM 9.5 mg/dL (8.4-10.2); GFR NON-AFRICAN AMERICAN > 60
[2018-08-28] MEDS: Insulin Regular 100 units/ml SC SCH ×4 (06:36→22:00)
--- NOTE | 2018-08-28 10:04 | CP.PCM.PN ---
Subjective - Date & Time of Evaluation Date of Evaluation: 08/28/18 Time of Evaluation: 10:04 - Subjective Subjective: Progress note dictated #[id number] Objective - Vital Signs/Intake and Output Vital Signs (last 24 hours): Temp Pulse Resp BP Pulse Ox 97.8 F 97 H 18 168/91 H 97 08/28/18 08:09 08/28/18 09:01 08/28/18 08:09 08/28/18 09:01 08/28/18 08:09 - Medications Medications: Current Medications Amlodipine Besylate (Norvasc) 10 mg PO DAILY [facility] Last Admin: 08/28/18 09:01 Dose: 10 mg Aspirin (Ecotrin) 81 mg PO DAILY [facility] Last Admin: 08/28/18 08:52 Dose: 81 mg Clopidogrel Bisulfate (Plavix) 75 mg PO DAILY [facility] Last Admin: 08/28/18 08:52 Dose: 75 mg Cyanocobalamin (Vitamin B12 1000 Mcg/Ml Inj) 1,000 mcg IM DAILY [facility] Last Admin: 08/28/18 08:53 Dose: 1,000 mcg Enalapril Maleate (Vasotec) 10 mg PO BID [facility] Last Admin: 08/28/18 08:52 Dose: 10 mg Glipizide (Glucotrol) 5 mg PO ACB [facility] Last Admin: 08/28/18 08:51 Dose: 5 mg Insulin Human Regular (Humulin R) 1 units SC [facility]; Protocol Last Admin: 08/28/18 06:36 Dose: Not Given Metformin HCl (Glucophage) 1,000 mg PO BIDWM [facility] Last Admin: 08/28/18 08:51 Dose: 1,000 mg Montelukast Sodium (Singulair) 10 mg PO HS [facility] Last Admin: 08/27/18 22:26 Dose: 10 mg Sitagliptin Phosphate (Januvia) 50 mg PO DAILY [facility] Last Admin: 08/28/18 08:52 Dose: 50 mg - Labs Labs: 08/28/18 04:30 08/28/18 04:30 PT 11.3 Seconds (9.8-13.1) 08/25/18 18:45 INR 1.0 08/25/18 18:45 APTT 30.4 Seconds (25.6-37.1) 08/25/18 18:45
--- NOTE | 2018-08-28 11:23 | CP.PCM.CON ---
History of Present Illness - History of Present Illness History of Present Illness: Psychiatry consult note CC: "I'm here because I fell" HPI: 87 yo male w/ h/o DM, HLD, aortic stenosis, COPD, presents w/o syncope and fall. Patient is currently A + O x self, location, but not date. He does not know the name of the current president. He can not state his medical problems or which medications he takes. When asked if he was told that a cardiac catherization is recommended, he stated that he was not told that information. He is a poor historian and unable to provided a detailed history. He denies depression/anxiety/AH/VH/SI/HI. Impression: 87 yo male, does not have capacity to make medical decisions at this time. He can not manipulate new information, understand which choices he has or make informed decisions. He does not know his current medical issues, medications or treatment recommendations. Past Patient History - Past Medical History & Family History Past Medical History?: Yes - Past Social History Smoking Status: Former Smoker - CARDIAC Hx Cardiac Disorders: Yes (CAD, angina, hypercholesterolemia, HTN) Hx Angina: Yes Hx Hypercholesterolemia: Yes Hx Hypertension: Yes - PULMONARY Hx Respiratory Disorders: Yes (asthma, pneumonia) Hx Asthma: Yes Hx Pneumonia: Yes - NEUROLOGICAL Hx Neurological Disorder: Yes (syncope) Hx Syncope: Yes - HEENT Hx HEENT Problems: Yes (cataracts) Hx Cataracts: Yes - RENAL Hx Chronic Kidney Disease: No - ENDOCRINE/METABOLIC Hx Endocrine Disorders: Yes (DM) Hx Diabetes Mellitus Type 2: Yes - HEMATOLOGICAL/ONCOLOGICAL Hx Blood Disorders: No Hx AIDS: No Hx Human Immunodeficiency Virus (HIV): No - INTEGUMENTARY Hx Dermatological Problems: No - MUSCULOSKELETAL/RHEUMATOLOGICAL Hx Musculoskeletal Disorders: Yes (arthritis, falls) Hx Arthritis: Yes Hx Falls: Yes - GASTROINTESTINAL Hx Gastrointestinal Disorders: No - GENITOURINARY/GYNECOLOGICAL Hx Genitourinary Disorders: Yes (prostate problems) Hx Prostate Problems: Yes - PSYCHIATRIC Hx Psychophysiologic Disorder: No Hx Substance Use: No - SURGICAL HISTORY Hx Surgeries: Yes Hx Cataract Extraction: Yes ( LEFT EYE) Hx Eye Surgery: Yes (LOSS OF VISION LEFT EYE) Other/Comment: PROSTATE SURGERY - ANESTHESIA Hx Anesthesia: Yes Hx Anesthesia Reactions: No Hx Malignant Hyperthermia: No Meds Allergies/Adverse Reactions: Allergies Allergy/AdvReac Type Severity Reaction Status Date / Time No Known Allergies Allergy Verified 08/25/18 16:15 - Medications Medications: Current Medications Amlodipine Besylate (Norvasc) 10 mg PO DAILY [facility] Last Admin: 08/28/18 09:01 Dose: 10 mg Aspirin (Ecotrin) 81 mg PO DAILY [facility] Last Admin: 08/28/18 08:52 Dose: 81 mg Clopidogrel Bisulfate (Plavix) 75 mg PO DAILY [facility] Last Admin: 08/28/18 08:52 Dose: 75 mg Cyanocobalamin (Vitamin B12 1000 Mcg/Ml Inj) 1,000 mcg IM DAILY [facility] Last Admin: 08/28/18 08:53 Dose: 1,000 mcg Enalapril Maleate (Vasotec) 10 mg PO BID [facility] Last Admin: 08/28/18 08:52 Dose: 10 mg Glipizide (Glucotrol) 5 mg PO ACB [facility] Last Admin: 08/28/18 08:51 Dose: 5 mg Insulin Human Regular (Humulin R) 1 units SC [facility]; Protocol Last Admin: 08/28/18 06:36 Dose: Not Given Metformin HCl (Glucophage) 1,000 mg PO BIDWM [facility] Last Admin: 08/28/18 08:51 Dose: 1,000 mg Montelukast Sodium (Singulair) 10 mg PO HS [facility] Last Admin: 08/27/18 22:26 Dose: 10 mg Sitagliptin Phosphate (Januvia) 50 mg PO DAILY [facility] Last Admin: 08/28/18 08:52 Dose: 50 mg Results - Vital Signs Recent Vital Signs: Last Vital Signs Temp 97.8 F 08/28/18 08:09 Pulse 97 H 08/28/18 09:01 Resp 18 08/28/18 08:09 BP 168/91 H 08/28/18 09:01 Pulse Ox 97 08/28/18 08:09 - Labs Result Diagrams: 08/28/18 04:30 08/28/18 04:30 Labs: Laboratory Results - last 24 hr 08/27/18 08/27/18 08/27/18 11:53 16:14 21:04 WBC RBC Hgb Hct MCV MCH MCHC RDW Plt Count MPV Neut % (Auto) Lymph % (Auto) Brooke % (Auto) Eos % (Auto) Baso % (Auto) Neut # (Auto) Lymph # (Auto) Brooke # (Auto) Eos # (Auto) Baso # (Auto) Sodium Potassium Chloride Carbon Dioxide Anion Gap BUN Creatinine Est GFR ( Amer) Est GFR (Non-Af Amer) POC Glucose (mg/dL) 145 H 135 H 84 Random Glucose Calcium Phosphorus Magnesium Total Bilirubin AST ALT Alkaline Phosphatase Total Protein Albumin Globulin Albumin/Globulin Ratio 08/28/18 08/28/18 08/28/18 04:30 04:30 05:12 WBC 7.7 RBC 4.84 Hgb 13.5 Hct 42.9 MCV 88.6 D MCH 28.0 MCHC 31.6 L RDW 14.7 H Plt Count 296 MPV 9.1 Neut % (Auto) 64.5 Lymph % (Auto) 20.5 Brooke % (Auto) 10.2 H Eos % (Auto) 4.2 H Baso % (Auto) 0.6 Neut # (Auto) 4.9 Lymph # (Auto) 1.6 Brooke # (Auto) 0.8 Eos # (Auto) 0.3 Baso # (Auto) 0.0 Sodium 138 Potassium 4.1 Chloride 101 Carbon Dioxide 31 H Anion Gap 10 BUN 15 Creatinine 0.9 Est GFR ( Amer) > 60 Est GFR (Non-Af Amer) > 60 POC Glucose (mg/dL) 85 Random Glucose 80 Calcium 9.5 Phosphorus 3.9 Magnesium 1.9 Total Bilirubin 0.5 AST 18 ALT 20 L Alkaline Phosphatase 74 Total Protein 7.1 Albumin 3.8 Globulin 3.3 Albumin/Globulin Ratio 1.2
--- NOTE | 2018-08-28 16:44 | PN ---
DATE: 08/28/2018 SUBJECTIVE: The patient denies any headache, dizziness, or chest pain. PHYSICAL EXAMINATION: VITAL SIGNS: Blood pressure 138/83, heart rate 74. temperature 98, respirations 18. HEENT: Right periorbital ecchymosis. NECK: No JVD. CHEST: Clear. HEART: S1 and S2 regular. Grade 4/6 ejection systolic murmur over left sternal border. ABDOMEN: Soft. EXTREMITIES: No edema. LABORATORY DATA: Hemoglobin and hematocrit are 13.5 and 42.5. White count and platelet count are within normal limit. Today's SMA-7 is within normal limit except for carbon dioxide of 31. presence of mild nonspecific diffuse disturbance of cortical activity specific etiology. ASSESSMENT: 1. Syncopal episode. 2. Moderate aortic stenosis. 3. Uncontrolled diabetes mellitus. RECOMMENDATIONS: The case was discussed with primary physician, Dr. Lopez. The son-in-law who agreed to consent for the cardiac catheterization according to Dr. Lopez is not really his son-in-law and he is a patient living with him for the purpose of having residency. This one is not reachable and the patient cannot decide for himself at this time. Psychiatry consult has been called and plans for cardiac catheterization was canceled until legal guardian or a person with a power of steam train driver is available. In the meantime, continue current aspirin, metformin, Norvasc, Plavix, Vasotec, and vitamin B12. Josse Ramires MD
--- NOTE | 2018-08-29 00:47 | PN ---
DATE: 08/28/2018 SUBJECTIVE: The patient was seen and examined at bedside. The patient looks more alert than yesterday. Denies any complaints, requesting to be discharged. Denies any chest pain, shortness of breath, or wheezing. PHYSICAL EXAMINATION: GENERAL: Elderly male, lying in bed, in no acute distress. VITAL SIGNS: Blood pressure 150/70, pulse 77, respirations 16, temperature 98.2 degrees Fahrenheit. O2 sat is 98%. HEENT: Pupils are equal, round, and reactive to light and accommodation. Extraocular muscles are intact. No icterus. No pallor. No oral thrush. No pharyngeal congestion. Right facial frontal hematoma noted, NECK: Supple. No JVD. LUNGS: Bilateral vesicular breath sounds. No wheezing. No rhonchi. CARDIOVASCULAR SYSTEM: S1, S2 present; regular. ABDOMEN: Soft, nontender. Bowel sounds present. No guarding. No rigidity. No rebound tenderness noted. CENTRAL NERVOUS SYSTEM: Alert, awake, and oriented x2. No focal deficits noted. EXTREMITIES: No edema. Palpable peripheral pulses. MEDICATIONS: Include Norvasc 10 mg daily, aspirin 81 mg daily, Plavix 75 mg daily, vitamin B12 of 1000 mcg daily, Vasotec 10 mg p.o. b.i.d., Glucotrol 5 mg p.o. morning, Glucophage 1000 mg p.o. b.i.d., Singulair 10 mg p.o. at bedtime, Januvia 50 mg daily. LABORATORY DATA: Labs from this morning, WBC 7.7, hemoglobin 13.5, hematocrit 42.9, platelets 296. Sodium 138, potassium 4.1, chloride 101, bicarb 31, BUN 15, creatinine 0.9, glucose 85, calcium 9.5, phosphorous 3.9, magnesium 1.9, AST 18, ALT 20, alkaline phosphatase 74, total protein 7.1, albumin 3.8. ASSESSMENT AND PLAN: Elderly male with history of hypertension, hyperlipidemia, aortic stenosis, diabetes mellitus, chronic obstructive pulmonary disease, admitted for syncope, status post fall, right frontal hematoma, altered mental status. Echo consistent with moderate aortic stenosis. I discussed with Cardiology for cardiac catheterization. Psychiatric consult was requested. As per Psychiatry, the patient does not have the capacity to make any decisions. Cardiac catheterization is postponed by Cardiology. Discussed at length with social services assistant regarding discharge planning, and family members to obtain the consent for the procedure. His blood pressure is stable on current medications. Accu-cheks We will continue with current medications. If patient is cleared by social services assistant, we will follow up with Cardiology. If procedure can be done as an outpatient, we will plan discharging the patient. Nissa Lopez MD
[2018-08-29] MEDS: Insulin Regular 100 units/ml SC SCH ×4 (06:40→22:12)
--- NOTE | 2018-08-29 11:30 | CP.PCM.PN ---
Subjective - Date & Time of Evaluation Date of Evaluation: 08/29/18 Time of Evaluation: 11:30 - Subjective Subjective: Progress note dictated # [id number] Objective - Vital Signs/Intake and Output Vital Signs (last 24 hours): Temp Pulse Resp BP Pulse Ox 98.3 F 62 18 157/79 H 98 08/29/18 08:03 08/29/18 08:48 08/29/18 08:03 08/29/18 08:48 08/29/18 08:03 - Medications Medications: Current Medications Amlodipine Besylate (Norvasc) 10 mg PO DAILY [facility] Last Admin: 08/29/18 08:48 Dose: 10 mg Aspirin (Ecotrin) 81 mg PO DAILY [facility] Last Admin: 08/29/18 08:48 Dose: 81 mg Clopidogrel Bisulfate (Plavix) 75 mg PO DAILY [facility] Last Admin: 08/29/18 08:48 Dose: 75 mg Cyanocobalamin (Vitamin B12 1000 Mcg/Ml Inj) 1,000 mcg IM DAILY [facility] Last Admin: 08/29/18 08:48 Dose: 1,000 mcg Enalapril Maleate (Vasotec) 10 mg PO BID [facility] Last Admin: 08/29/18 08:47 Dose: 10 mg Glipizide (Glucotrol) 5 mg PO ACB [facility] Last Admin: 08/29/18 08:47 Dose: 5 mg Insulin Human Regular (Humulin R) 1 units SC [facility]; Protocol Last Admin: 08/29/18 06:40 Dose: Not Given Metformin HCl (Glucophage) 1,000 mg PO BIDWM [facility] Last Admin: 08/29/18 08:47 Dose: 1,000 mg Montelukast Sodium (Singulair) 10 mg PO HS [facility] Last Admin: 08/28/18 22:01 Dose: 10 mg Sitagliptin Phosphate (Januvia) 50 mg PO DAILY [facility] Last Admin: 08/29/18 08:48 Dose: 50 mg - Labs Labs: 08/28/18 04:30 08/28/18 04:30 PT 11.3 Seconds (9.8-13.1) 08/25/18 18:45 INR 1.0 08/25/18 18:45 APTT 30.4 Seconds (25.6-37.1) 08/25/18 18:45
--- NOTE | 2018-08-29 19:48 | PN ---
DATE: 08/29/2018 SUBJECTIVE: The patient denies any headache or dizziness. Son-in-law is at the bedside. PHYSICAL EXAMINATION VITAL SIGNS: Blood pressure 148/73, heart rate 80, temperature 98.6, respirations 18. HEENT: Right periorbital ecchymosis. NECK: No JVD. CHEST: Minimal rhonchi. HEART: S1, S2 regular. Grade IV/ ejection systolic murmur over the left sternal border. EXTREMITIES: No edema. LABORATORY DATA: Today's blood sugar 193 and 283 respectively. ASSESSMENT: 1. Syncopal episode. 2. Moderate aortic stenosis. 3. Uncontrolled diabetes mellitus. RECOMMENDATIONS: Continue aspirin 81 mg once a day, Glucophage 1 g twice a day, glipizide 5 mg twice a day, Norvasc 10 mg once a day, Plavix 75 mg once a day, 10 mg once a day. I will discuss with the medical team including the primary physician if the daughter is qualified to sign for procedure on behalf of the patient unless the patient's son, who moved to [place], can be contacted. Josse Ramires MD
[2018-08-30] MEDS: Insulin Regular 100 units/ml SC SCH ×2 (06:55→11:23)
--- NOTE | 2018-08-30 07:56 | PN ---
DATE: 08/29/2018 SUBJECTIVE: The patient was seen and examined at bedside. The patient is feeling better. Denies any new complaint. Denies any chest pain, dizziness, or shortness of breath. Denies any nausea or vomiting. PHYSICAL EXAMINATION: GENERAL: Elderly male, lying in bed, in no acute distress. VITAL SIGNS: Blood pressure 154/77, pulse 75, respirations 20, temperature 98.2 degrees Fahrenheit, O2 saturation is 98% on room air. HEENT: Pupils equal, round and reacting to light and accommodation. Extraocular muscles intact. No icterus. No pallor. NECK: Supple. No JVD. LUNGS: Bilateral vesicular breath sounds. No wheezing. No rhonchi. CEREBROVASCULAR SYSTEM: S1 and S2 are present and regular. ABDOMEN: Soft. Nontender. Bowel sounds present. No guarding. No rigidity. No rebound tenderness noted. CENTRAL NERVOUS SYSTEM: Alert, awake, and oriented x2. No focal deficits noted. EXTREMITIES: No edema. Palpable peripheral pulses. MEDICATIONS: Include Norvasc 10 mg daily, aspirin 81 mg daily, Plavix 75 mg daily, B12 1000 mcg daily, Vasotec 10 mg p.o. b.i.d., Glucotrol 5 mg p.o. daily, Singulair 10 mg p.o. at bedtime, Glucophage 1000 mg p.o. b.i.d., Januvia 50 mg p.o. daily. LABORATORY DATA: Accu-Cheks 271, 88, 79, 93, 283. ASSESSMENT AND PLAN: Elderly male with history of hypertension, hyperlipidemia, diabetes mellitus, chronic obstructive pulmonary disease, moderate aortic stenosis, status post syncope and fall with right frontal hematoma. Neurologic workup is negative so far. Cardiology recommended cardiac catheterization. The patient is scheduled for cardiac catheterization, which was canceled secondary to not able to get in touch with the patient's family, and psychiatry made the patient incompetent to make decision, tried to contact the patient's son, the number was discontinued. Discussed with social secretary. Awaiting for the patient's family to call back regarding the consent and cardiac catheterization. If unable to do the procedure by Cardiology, we will discharge the patient home if cleared by Cardiology for further cardiac workup as outpatient. The patient is cleared by Neurology. Nissa Lopez MD
[2018-08-30 07:57] VITALS: RESP 18
--- NOTE | 2018-08-30 10:45 | CP.PCM.PN ---
Subjective - Date & Time of Evaluation Date of Evaluation: 08/30/18 Time of Evaluation: 10:45 - Subjective Subjective: discharge summary dictated #[id number] Objective - Vital Signs/Intake and Output Vital Signs (last 24 hours): Temp Pulse Resp BP Pulse Ox 97.9 F 71 18 105/64 96 08/30/18 07:56 08/30/18 09:04 08/30/18 07:56 08/30/18 09:04 08/30/18 07:56 - Medications Medications: Current Medications Amlodipine Besylate (Norvasc) 10 mg PO DAILY [facility] Last Admin: 08/30/18 09:04 Dose: 10 mg Aspirin (Ecotrin) 81 mg PO DAILY [facility] Last Admin: 08/30/18 09:03 Dose: 81 mg Clopidogrel Bisulfate (Plavix) 75 mg PO DAILY [facility] Last Admin: 08/30/18 09:03 Dose: 75 mg Cyanocobalamin (Vitamin B12 1000 Mcg/Ml Inj) 1,000 mcg IM DAILY [facility] Last Admin: 08/30/18 09:04 Dose: 1,000 mcg Enalapril Maleate (Vasotec) 10 mg PO BID [facility] Last Admin: 08/30/18 09:04 Dose: 10 mg Glipizide (Glucotrol) 5 mg PO ACB [facility] Last Admin: 08/30/18 09:03 Dose: 5 mg Insulin Human Regular (Humulin R) 1 units SC [facility]; Protocol Last Admin: 08/30/18 06:55 Dose: 1 u Metformin HCl (Glucophage) 1,000 mg PO BIDWM [facility] Last Admin: 08/30/18 09:03 Dose: 1,000 mg Montelukast Sodium (Singulair) 10 mg PO HS [facility] Last Admin: 08/29/18 22:18 Dose: 10 mg Sitagliptin Phosphate (Januvia) 50 mg PO DAILY [facility] Last Admin: 08/30/18 09:03 Dose: 50 mg - Labs Labs: 08/28/18 04:30 08/28/18 04:30 PT 11.3 Seconds (9.8-13.1) 08/25/18 18:45 INR 1.0 08/25/18 18:45 APTT 30.4 Seconds (25.6-37.1) 08/25/18 18:45
[2018-08-30 12:13] VITALS: BP 102/52; PULSE 92; TEMP 98.2; O2SAT 97
--- NOTE | 2018-08-31 01:10 | DS ---
DISCHARGE DIAGNOSES: Status post fall, status post syncope with right frontal hematoma, diabetes mellitus, hypertension, hyperlipidemia, chronic obstructive pulmonary disease, moderate aortic stenosis, history of recurrent falls. HISTORY OF PRESENT ILLNESS: Mr. Aguillon is an 87-year-old male with past medical history of hypertension, hyperlipidemia, diabetes mellitus, COPD, moderate aortic stenosis, recent admissions to the ED for falls, came into the ED, brought by EMS after the patient had syncopal episode, was found lying on the ground, right-sided face down by the patient's caregiver. The patient was initially admitted for observation. Later when I examined, the patient was confused and it was turned into admission for altered mental status. Today, the patient is more alert and awake, but still oriented to two, person and place. Denied any headache or dizziness. Denied any chest pain, shortness of breath, or wheezing. Denied any nausea, vomiting, abdominal pain, diarrhea, or constipation. Denied any urinary complaints. Denied any leg pains or leg cramps. All other systems reviewed and was found to be negative. PHYSICAL EXAMINATION: GENERAL: Elderly male, lying in bed, in no acute distress. VITAL SIGNS: Blood pressure 167/56, pulse 63, respirations 20, temperature 98.1 degrees Fahrenheit, O2 sats are 100% on room air. HEENT: Pupils are equal, round, and reacting to light and accommodation. Extraocular muscles intact. No icterus. No pallor. No oral thrush. No pharyngeal congestion. NECK: Supple. No JVD. LUNGS: Bilateral vesicular breath sounds. No wheezing. No rhonchi. CARDIOVASCULAR SYSTEM: S1, S2 present, regular. Early diastolic murmur heard. ABDOMEN: Soft, nontender. Bowel sounds present. No guarding. No rigidity. No rebound tenderness noted. CENTRAL NERVOUS SYSTEM: Alert, awake, oriented x2. No focal deficits noted. EXTREMITIES: No edema. Palpable peripheral pulses. LABORATORY DATA: Labs done this morning: Glucose 283, 158, 247, 162, 360. WBC 7.7, hemoglobin 13.5, hematocrit 42.9, platelets 296. Sodium 138, potassium 4.1, chloride 101, bicarbonate 31, BUN 15, creatinine 0.9, glucose 80, calcium 9.5, phosphorus 3.9, magnesium 1.9, total bilirubin 0.5, AST 18, ALT 20, alkaline phosphatase 74, total protein 7.1, albumin 3.8. CT head negative for any acute bleed. MRI negative. EEG, no seizure-like activity noted. Carotid ultrasound, negative for any significant stenosis. Cervical spine CT negative. Echocardiogram consistent with moderate aortic stenosis. HOSPITAL COURSE: The patient was admitted to the hospital for syncope. The patient was evaluated by Neurology and Cardiology. All the neurologic workups done. The patient was cleared neurologically. The patient's echo showed moderate aortic stenosis. The patient was evaluated by Dr. Ramires, recommended cardiac catheterization. The patient remained oriented to person and place and appeared confused at times. The patient's caregiver, who is at home is not the next of kin. As family is unavailable, procedure was canceled to be done as outpatient and Psychiatry also made him incompetent to decide any medical decision. As the patient is otherwise hemodynamically stable and the procedure postponed secondary to unable to contact the patient's family, the patient's caregiver is willing to take the patient to home and is willing to take the patient to all the consultants and the doctors visit. director of tax services made arrangements for home care as the patient is otherwise stable and cleared by all the consultants, the patient was discharge to home. DISCHARGE MEDICATIONS: Include amlodipine 10 mg daily, aspirin 81 mg daily, Plavix 75 mg daily, B12 1000 mcg daily, glipizide 5 mg daily, metformin 1000 mg p.o. b.i.d., Singulair 10 mg daily, Zocor 10 mg p.o. at bedtime, and Januvia 50 mg daily. CONDITION UPON DISCHARGE: The patient is alert, awake, oriented x2; and hemodynamically stable at the time of discharge. DISCHARGE INSTRUCTIONS: Follow up with PMD. Follow up with Cardiology. DISCHARGE DIET: Low-sodium, low cholesterol, 1800-calorie ADA diet. Activity as tolerated with assistance. Nissa Lopez MD
== END 2018-08-30 13:54 | disposition home or self-care (01) | DRG 307 ==
LOC: H.ER 16:11 → H.ERHOLD 20:09 → OBSVTOIN 08-26 11:38 → H.TEL 08-26 20:19
PROVIDERS: ADMIT Internal Medicine; ATTEND Internal Medicine
DX: I35.0 Nonrheumatic aortic (valve) stenosis (principal); M19.90 Unspecified osteoarthritis, unspecified site; J45.909 Unspecified asthma, uncomplicated; E78.00 Pure hypercholesterolemia, unspecified; Z87.01 Personal history of pneumonia (recurrent); E78.5 Hyperlipidemia, unspecified; I25.119 Atherosclerotic heart disease of native coronary artery with unspecified angina pectoris; E11.9 Type 2 diabetes mellitus without complications; W06.XXXA Fall from bed, initial encounter; J44.9 Chronic obstructive pulmonary disease, unspecified; S00.83XA Contusion of other part of head, initial encounter; E11.649 Type 2 diabetes mellitus with hypoglycemia without coma; F03.90 Unspecified dementia, unspecified severity, without behavioral disturbance, psychotic disturbance, mood disturbance, and anxiety; I10 Essential (primary) hypertension; Z91.14 Patient's other noncompliance with medication regimen